=== PATIENT | male | born 1950 | race Caucasian/White ===

== ENCOUNTER → 2021-06-05 13:36 | Outpatient (BNVA) | payer MEDICARE, OTHER, SELFPAY | PROVIDERS: Family Provider Family Medicine; Visit Provider Podiatrist Foot & Ankle Surgery | DX: M79.672 Pain in left foot (principal); M10.9 Gout, unspecified | CPT/HCPCS: 73630 ==

== ENCOUNTER → 2021-06-29 09:08 | Outpatient (BNVA) | payer MEDICARE, OTHER, SELFPAY | PROVIDERS: Family Provider Family Medicine; Visit Provider Podiatrist Foot & Ankle Surgery | DX: B35.3 Tinea pedis (principal); S92.505D Nondisplaced unspecified fracture of left lesser toe(s), subsequent encounter for fracture with routine healing; X58.XXXD Exposure to other specified factors, subsequent encounter | CPT/HCPCS: 73630 ==

== ENCOUNTER → 2023-07-14 09:24 | Outpatient (BNVA) | payer MEDICARE, OTHER, SELFPAY | PROVIDERS: Family Provider Family Medicine; PCP Family Medicine; Visit Provider Clinical Nurse Specialist Adult Health | DX: J06.9 Acute upper respiratory infection, unspecified (principal) | CPT/HCPCS: 87400; 87426 ==

== ENCOUNTER 2023-12-26 19:21 | Emergency (ER) | payer MEDICARE, OTHER, SELFPAY ==
[2023-12-26 19:24] VITALS: BP 213/113; PULSE 90; RESP 16; TEMP 36.8; O2SAT 96
[2023-12-26] MEDS: labetalol 5 mg/mL SDV 20mL 10 MG IVP ×2 (20:02→20:41)
[2023-12-26 20:04] LABS: Basophils # 0.1 10^3/uL (0.0-0.1); Basophils % 0.7 %; Eosinophils # 0.2 10^3/uL (0.0-0.8); Eosinophils % 1.7 %; Hematocrit 48.7 % (37-53); Lymphocytes # 3.6 10^3/uL (0.8-4.8); Lymphocytes % 39.1 %; Mean Corpuscular HGB Conc 34.5 g/dL (30-55); Mean Corpuscular Hemoglobin 32.6 pg (27-33); Mean Corpuscular Volume 94.4 fl (82-101); Mean Platelet Volume 11.5 fL (7.4-10.4); Monocytes # 0.8 10^3/uL (0.2-0.9); Monocytes % 8.9 %; Neutrophils # 4.55 10^3/uL (1.8-7.7); Neutrophils % 49.4 %; Nucleated Red Blood Cells % 0 %; Platelet Count 160 10^3/cmm (157-399); Red Blood Count 5.16 10^6/uL (3.85-5.65); Red Cell Distribution Width 13.7 % (12.1-15.1); White Blood Count 9.21 10^3/uL (3.29-11.43)
[2023-12-26 20:10] VITALS: BP 193/123; PULSE 95; RESP 18; O2SAT 94
[2023-12-26 20:17] LABS: Anion Gap 15.7 (5-19); Blood Urea Nitrogen 14 mg/dL (8-23); Carbon Dioxide 26 mmol/L (22-29); Chloride 105 mmol/L (98-107); Creatinine Clr Calc Pharmacy 107.6199; Glucose 185 mg/dL (65-115); Potassium 3.7 mmol/L (3.5-5.1); Sodium 143 mmol/L (136-145)
[2023-12-26 20:18] LABS: Calcium 9.1 mg/dL (8.5-10.5); Osmolality Calculated 301 mOsm/kg (285-295)
[2023-12-26 20:30] VITALS: BP 177/124; PULSE 89; RESP 18; O2SAT 95
--- NOTE | 2023-12-26 20:36 | ED_ITS ---
HPI - General Adult 2 General: Chief complaint: General Medical Stated complaint: BP High Time Seen by Provider: 12/26/23 19:33 Source: patient and family Mode of arrival: ambulatory Limitations: no limitations History of Present Illness: Patient had a doctor appointment to follow-up on a foot wound for which there continues to doxycycline. He was told to take his hypertension meds and recheck his blood pressure later today. He did not recheck the blood pressure till 4:30 PM he reportedly did take his losartan metoprolol. Comes in tonight with hypertensive urgency. No signs of vision loss, chest pain gait or maladies, headache. Just elevated blood pressure. Review of Systems 2 General: Reports: 10 or more systems reviewed and unremarkable except in HPI and below PFSH ED 2 PFSH: Medical History Gout Essential hypertension Physical Exam 2 Const: COMMON NORMALS: no acute distress, average body habitus, patient oriented x3, healthy appearing, alert and well nourished GENERAL APPEARANCE: well kempt and well developed HENMT: COMMON NORMALS: normocephalic, atraumatic, external ears normal and moist oral mucous membranes HEAD & SCALP: normocephalic and atraumatic E XTERNAL EAR: Yes external ears normal Eye: COMMON NORMALS: Equal, round and reactive pupils present, EOMs intact bilaterally and conjunctivae normal CONJUNCTIVA: Yes conjunctivae normal P UPIL: Yes Equal, round and reactive pupils present Neck/C-Spine: COMMON NORMALS: full ROM, no lymphadenopathy and supple Chest: CHEST: Yes Symmetrical chest wall rise and No Surgical scars present (Chest) Resp: COMMON NORMALS: normal respiratory effort, No retractions, No use of accessory muscles and clear to auscultation bilaterally AUSCULTATION: clear to auscultation bilaterally Cardio: COMMON NORMALS: regular rate, regular rhythm, S1 normal heart sound present, S2 normal heart sound present, No gallops present (Cardio), No clicks present (Cardio), No murmurs present (Cardio) and No rub (Cardio) RATE: r egular rate RHYTHM: regular rhythm HEART SOUNDS: S1 normal heart sound present, S2 normal heart sound present and no murmurs PERIPHERAL PULSES: o ther (Radial pulses 2+ and symmetric) GI: COMMON NORMALS: Soft to palpation, non-tender and no masses INSPECTION: No abdominal distension PALPATION: Yes Soft to palpation, No Guarding due to palpation present (GI) and No Rebound tenderness present : COMMON NORMALS: Yes no CVA tenderness BLADDER/KIDNEY EXAM: Yes no CVA tenderness Back/Pelvis: COMMON NORMALS: no CVA tenderness Extremity: COMMON NORMALS: normal to inspection, full ROM, capillary refill normal and no clubbing, cyanosis or edema Neuro: COMMON NORMALS: patient oriented x3 SENSORIUM/ORIENTATION: Yes alert Psych: APPEARANCE: Yes well kempt Skin: COMMON NORMALS: no rashes or lesions noted, no wounds, turgor normal and no jaundice GENERAL SKIN EXAM: no rashes or lesions noted and turgor normal Course 2 Reevaluation(s): Reevaluation #1: Patient still asymptomatic, blood pressure mildly improved will give another dose of labetalol and add Nitropaste. Time: 20:39 Reevaluation #2: Blood pressure now much improved, results discussed with patient and family member. Will discharge home. Time: 21:23 Vital Signs: Vital signs: Vital Signs Temperature 98.2 F 12/26/23 19:24 Pulse Rate 85 12/26/23 21:12 Respiratory Rate 18 12/26/23 21:12 Blood Pressure 164/103 12/26/23 21:12 Pulse Oximetry 96 12/26/23 21:12 Oxygen Delivery Me thod Room Air 12/26/23 19:24 MDM - General Adult Medical Decision Making Patient only on losartan metoprolol per the meds he brought with him. Reports he took him today that sound like he may take him intermittently based on the clinic advising him to take him this morning. Labs reviewed and no acute kidney injury or chronic kidney injury. H&H stable. Have given 1 dose of labetalol 10. Will repeat labetalol and add a nitro paste. Much improvement with blood pressure, reviewed results with patient. Will give hydralazine tablet and discharged home. Patient to recheck blood pressure 2 hours after morning meds tomorrow and if still elevated to see primary care. Medical Records I reviewed the patient's medical records. Lab Data I reviewed the patient's lab results. 12/26/23 19:49 12/26/23 19:49 Laboratory Results WBC 9.21 10^3/uL (3.29-11.43) 12/26/23 19:49 RBC 5.16 10^6/uL (3.85-5.65) 12/26/23 19:49 Hgb 16.80 g/dL (11.27-16.99) 12/26/23 19:49 Hct 48.7 % (37-53) 12/26/23 19:49 MCV 94.4 fl (82-101) 12/26/23 19:49 MCH 32.6 pg (27-33) 12/26/23 19:49 MCHC 34.5 g/dL (30-55) 12/26/23 19:49 RDW 13.7 % (12.1-15.1) 12/26/23 19:49 Plt Count 160 10^3/cmm (157-399) 12/26/23 19:49 MPV 11.5 fL (7.4-10.4) H 12/26/23 19:49 Neut % (Auto) 49.4 % 12/26/23 19:49 Lymph % (Auto) 39.1 % 12/26/23 19:49 [place] % (Auto) 8.9 % 12/26/23 19:49 Eos % (Auto) 1.7 % 12/26/23 19:49 Baso % (Auto) 0.7 % 12/26/23 19:49 Neut # (Auto) 4.55 10^3/uL (1.8-7.7) 12/26/23 19:49 Lymph # (Auto) 3.6 10^3/uL (0.8-4.8) 12/26/23 19:49 [place] # (Auto) 0.8 10^3/uL (0.2-0.9) 12/26/23 19:49 Eos # (Auto) 0.2 10^3/uL (0.0-0.8) 12/26/23 19:49 Baso # (Auto) 0.1 10^3/uL (0.0-0.1) 12/26/23 19:49 Nucleated RBC % (auto) 0 % 12/26/23 19:49 Nucleated RBCs # 0.0 /100WBC 12/26/23 19:49 Sodium 143 mmol/L (136-145) 12/26/23 19:49 Potassium 3.7 mmol/L (3.5-5.1) 12/26/23 19:49 Chloride 105 mmol/L (98-107) 12/26/23 19:49 Carbon Dioxide 26 mmol/L (22-29) 12/26/23 19:49 Anion Gap 15.7 (5-19) 12/26/23 19:49 BUN 14 mg/dL (8-23) 12/26/23 19:49 Creatinine 0.8 mg/dL (0.7-1.2) 12/26/23 19:49 GFR Calculation Not Reportable 12/26/23 19:49 Glucose 185 mg/dL (65-115) H 12/26/23 19:49 Calculated Osmolality 301 mOsm/kg (285-295) H 12/26/23 19:49 Calcium 9.1 mg/dL (8.5-10.5) 12/26/23 19:49 No radiology studies performed this visit Discharge Plan Discharge Patient Disposition: Home Clinical Impression: Hypertensive urgency Condition: Stable Prescriptions: No Action hydrochlorothiazide 25 mg tablet 25 mg PO DAILY ketoconazole 2 % cream 1 applic topical BID 30 Days Qty: 60 2RF ketoconazole 2 % cream 1 applic topical BID Qty: 60 5RF doxycycline monohydrate 100 mg capsule 100 mg PO BID Qty: 10 0RF benzonatate 100 mg capsule 100 mg PO TID PRN (Reason: cough) Qty: 45 0RF metoprolol succinate 25 mg tablet extended release 24 hr See Rx Instructions .ROUTE .COMPLEX Qty: 180 3RF Dose Instruction: TAKE 1 TABLET BY MOUTH TWICE DAILY Rx Instructions: TAKE 1 TABLET BY MOUTH TWICE DAILY losartan 25 mg tablet See Rx Instructions .ROUTE .COMPLEX Qty: 90 3RF Dose Instruction: TAKE 1 TABLET BY MOUTH DAILY Rx Instructions: TAKE 1 TABLET BY MOUTH DAILY allopurinol 300 mg tablet See Rx Instructions .ROUTE .COMPLEX Qty: 90 3RF Dose Instruction: TAKE 1 TABLET BY MOUTH EVERY DAY FOR GOUT Rx Instructions: TAKE 1 TABLET BY MOUTH EVERY DAY FOR GOUT Discharge Orders: Discharge ED (Routine); Ordered 12/26/23 Ordered By: Isaiah Nelson Referrals: Jg Webster MD [Primary Care Provider] - Patient Instructions: Hypertension in the Older Adult (ED) Coding Level of Care Code ED Head Of Marketing Analytics for Sadig Mayte
[2023-12-26 20:41] VITALS: BP 189/117; PULSE 83; RESP 18; O2SAT 94
[2023-12-26 20:42] VITALS: BP 189/117; PULSE 90
[2023-12-26] MEDS: nitroglycerin 1 gm/inch oint Pkt 0.5 INCH TOPICAL (20:42)
[2023-12-26 21:12] VITALS: BP 164/103; PULSE 85; RESP 18; O2SAT 96
--- NOTE | 2023-12-26 21:24 | ED_ITS ---
HPI - General Adult 2 General: Chief complaint: General Medical Stated complaint: BP High Time Seen by Provider: 12/26/23 19:33 Source: patient and family Mode of arrival: ambulatory Limitations: no limitations History of Present Illness: note opened in error [facility] ED 2 PFSH: Medical History Gout Essential hypertension Course 2 Vital Signs: Vital signs: Vital Signs Temperature 98.2 F 12/26/23 19:24 Pulse Rate 85 12/26/23 21:12 Respiratory Rate 18 12/26/23 21:12 Blood Pressure 164/103 12/26/23 21:12 Pulse Oximetry 96 12/26/23 21:12 Oxygen Delivery Me thod Room Air 12/26/23 19:24 MDM - General Adult Medical Decision Making 2nd note opened in error Lab Data 12/26/23 19:49 12/26/23 19:49 Laboratory Results WBC 9.21 10^3/uL (3.29-11.43) 12/26/23 19:49 RBC 5.16 10^6/uL (3.85-5.65) 12/26/23 19:49 Hgb 16.80 g/dL (11.27-16.99) 12/26/23 19:49 Hct 48.7 % (37-53) 12/26/23 19:49 MCV 94.4 fl (82-101) 12/26/23 19:49 MCH 32.6 pg (27-33) 12/26/23 19:49 MCHC 34.5 g/dL (30-55) 12/26/23 19:49 RDW 13.7 % (12.1-15.1) 12/26/23 19:49 Plt Count 160 10^3/cmm (157-399) 12/26/23 19:49 MPV 11.5 fL (7.4-10.4) H 12/26/23 19:49 Neut % (Auto) 49.4 % 12/26/23 19:49 Lymph % (Auto) 39.1 % 12/26/23 19:49 [place] % (Auto) 8.9 % 12/26/23 19:49 Eos % (Auto) 1.7 % 12/26/23 19:49 Baso % (Auto) 0.7 % 12/26/23 19:49 Neut # (Auto) 4.55 10^3/uL (1.8-7.7) 12/26/23 19:49 Lymph # (Auto) 3.6 10^3/uL (0.8-4.8) 12/26/23 19:49 [place] # (Auto) 0.8 10^3/uL (0.2-0.9) 12/26/23 19:49 Eos # (Auto) 0.2 10^3/uL (0.0-0.8) 12/26/23 19:49 Baso # (Auto) 0.1 10^3/uL (0.0-0.1) 12/26/23 19:49 Nucleated RBC % (auto) 0 % 12/26/23 19:49 Nucleated RBCs # 0.0 /100WBC 12/26/23 19:49 Sodium 143 mmol/L (136-145) 12/26/23 19:49 Potassium 3.7 mmol/L (3.5-5.1) 12/26/23 19:49 Chloride 105 mmol/L (98-107) 12/26/23 19:49 Carbon Dioxide 26 mmol/L (22-29) 12/26/23 19:49 Anion Gap 15.7 (5-19) 12/26/23 19:49 BUN 14 mg/dL (8-23) 12/26/23 19:49 Creatinine 0.8 mg/dL (0.7-1.2) 12/26/23 19:49 GFR Calculation Not Reportable 12/26/23 19:49 Glucose 185 mg/dL (65-115) H 12/26/23 19:49 Calculated Osmolality 301 mOsm/kg (285-295) H 12/26/23 19:49 Calcium 9.1 mg/dL (8.5-10.5) 12/26/23 19:49 No radiology studies performed this visit Discharge Plan Discharge Patient Disposition: Home Clinical Impression: Hypertensive urgency Condition: Stable Prescriptions: No Action hydrochlorothiazide 25 mg tablet 25 mg PO DAILY ketoconazole 2 % cream 1 applic topical BID 30 Days Qty: 60 2RF ketoconazole 2 % cream 1 applic topical BID Qty: 60 5RF doxycycline monohydrate 100 mg capsule 100 mg PO BID Qty: 10 0RF benzonatate 100 mg capsule 100 mg PO TID PRN (Reason: cough) Qty: 45 0RF metoprolol succinate 25 mg tablet extended release 24 hr See Rx Instructions .ROUTE .COMPLEX Qty: 180 3RF Dose Instruction: TAKE 1 TABLET BY MOUTH TWICE DAILY Rx Instructions: TAKE 1 TABLET BY MOUTH TWICE DAILY losartan 25 mg tablet See Rx Instructions .ROUTE .COMPLEX Qty: 90 3RF Dose Instruction: TAKE 1 TABLET BY MOUTH DAILY Rx Instructions: TAKE 1 TABLET BY MOUTH DAILY allopurinol 300 mg tablet See Rx Instructions .ROUTE .COMPLEX Qty: 90 3RF Dose Instruction: TAKE 1 TABLET BY MOUTH EVERY DAY FOR GOUT Rx Instructions: TAKE 1 TABLET BY MOUTH EVERY DAY FOR GOUT Discharge Orders: Discharge ED (Routine); Ordered 12/26/23 Ordered By: Isaiah Nelson Referrals: Jg Webster MD [Primary Care Provider] - Discharge Diet: Low Salt Discharge Activity: Resume usual activity Patient Instructions: Hypertension in the Older Adult (ED) Coding Level of Care Code ED Medicare Contact Specialist for Cruzito Hu
[2023-12-26] MEDS: hyDRALAzine 25 mg Tablet PO (21:26)
== END 2023-12-26 21:34 | disposition home or self-care (01) ==
PROVIDERS: Emergency Provider Emergency Medicine; PCP Family Medicine
DX: I16.0 Hypertensive urgency (principal); I10 Essential (primary) hypertension
CPT/HCPCS: 80048; 85025; 96374; 96376; 99284; J3490

== ENCOUNTER → 2024-06-27 08:46 | Outpatient (BNVA) | payer MEDICARE, OTHER, SELFPAY | PROVIDERS: PCP Family Medicine; Visit Provider Family Medicine | DX: I10 Essential (primary) hypertension (principal); I48.91 Unspecified atrial fibrillation; M10.9 Gout, unspecified | CPT/HCPCS: 80053; 80061; 84550; 85025 ==

== ENCOUNTER → 2024-11-30 11:17 | Outpatient (BNVA) | payer MEDICARE, OTHER, SELFPAY | PROVIDERS: PCP Family Medicine; Visit Provider Family Medicine | DX: E03.9 Hypothyroidism, unspecified (principal); I10 Essential (primary) hypertension; M10.9 Gout, unspecified; I48.91 Unspecified atrial fibrillation; R53.83 Other fatigue | CPT/HCPCS: 80053; 80061; 82306; 84443; 85025 ==

== ENCOUNTER → 2024-12-27 15:28 | Outpatient (BNVA) | payer MEDICARE, OTHER, SELFPAY | PROVIDERS: PCP Family Medicine; Visit Provider Family Medicine | DX: T14.8XXA Other injury of unspecified body region, initial encounter (principal); X58.XXXA Exposure to other specified factors, initial encounter | CPT/HCPCS: 87070 ==

== ENCOUNTER → 2024-12-28 10:52 | Outpatient (BNVA) | payer MEDICARE, OTHER, SELFPAY | PROVIDERS: PCP Family Medicine; Visit Provider Emergency Medicine | DX: M19.071 Primary osteoarthritis, right ankle and foot (principal) | CPT/HCPCS: 73630 ==

== ENCOUNTER 2024-12-30 11:55 | Inpatient (IN) | payer MEDICARE, OTHER, SELFPAY ==
[2024-12-30] VITALS (8 sets, daily range): BP systolic 108–146; BP diastolic 67–98; PULSE 70–88; RESP 16–20; TEMP 36.3–36.5; O2SAT 90–100; BMI 28.6
[2024-12-30 13:08] LABS: Basophils # 0.1 10^3/uL (0.0-0.1); Eosinophils # 0.1 10^3/uL (0.0-0.8); Eosinophils % 1.4 %; Hematocrit 51.5 % (37-53); Lymphocytes # 2.8 10^3/uL (0.8-4.8); Lymphocytes % 35.9 %; Mean Corpuscular HGB Conc 32.8 g/dL (30-55); Mean Corpuscular Hemoglobin 32.5 pg (27-33); Mean Platelet Volume 11.2 fL (7.4-10.4); Monocytes # 0.9 10^3/uL (0.2-0.9); Monocytes % 11.2 %; Neutrophils # 3.92 10^3/uL (1.8-7.7); Neutrophils % 50.4 %; Nucleated Red Blood Cells % 0 %; Platelet Count 221 10^3/cmm (157-399); Red Cell Distribution Width 13.4 % (12.1-15.1); White Blood Count 7.79 10^3/uL (3.29-11.43)
[2024-12-30 13:15] LABS: Erythrocyte Sedimentation Rate 6 mm/hr (0-10)
[2024-12-30 13:27] LABS: C Reactive Protein 16.7 mg/L (0.0-4.9)
--- NOTE | 2024-12-30 14:42 | ED_ITS ---
HPI - Wound/Laceration 2 General: Chief Complaint: Wound/Laceration Stated Complaint: stepped on nail - rt foot injury Time Seen by Provider: 12/30/24 13:45 Source: patient Mode of arrival: ambulatory Limitations: no limitations History of Present Illness: 74-year-old male who states that he had stepped on a nail on Tuesday he states he had seen urgent care he is currently on clindamycin and Cipro states has had increased redness to his right foot. Had some slight pain denies any fevers. Denies any worse improving factors Associated symptoms: Denies chills, fever(s), nausea or vomiting Related Data Previous Rx's ?Medication ?Instructions ?Recorded metoprolol succinate 25 mg See Rx Instructions .Route 01/24/24 tablet,extended release 24 hr .COMPLEX #180 tabs allopurinol 300 mg tablet See Rx Instructions .Route 0 11/30/24 .COMPLEX #90 tabs hydrochlorothiazide 25 mg tablet See Rx Instructions . Route 12/14/24 .COMPLEX #90 tabs losartan 50 mg tablet See Rx Instructions .Route 0 12/14/24 .COMPLEX #90 tabs Lactobacillus acidophilus 100 mg PO TID #30 caps 12/27 (Acidophilus capsule) clindamycin HCl 300 mg capsule 300 mg PO QID #40 caps 12/27/24 apixaban 5 mg tablet (Eliquis) 5 mg PO BID anticoagula tion due to 12/28/24 afib #60 tabs ciprofloxacin HCl 500 mg tablet 500 mg PO BID 10 days #20 tabs 12/28/24 Allergies Allergy/AdvReac Type Severity Reaction Status Date / Time No Known Allergies Allergy Verified 12/28/24 10:26 Review of Systems 2 Const: Denies: fever(s), chills, body aches or change in appetite ENMT: Denies: throat pain or dental pain Card: Denies: chest pain Resp: Denies: dyspnea GI: Denies: abdominal pain, nausea, vomiting or diarrhea Musc: Reports: extremity pain; Denies: neck pain or back pain Skin/Breast: Reports: erythema; Denies: rash Neuro: Denies: headache(s) PFSH ED 2 PFSH: Medical History Atrial fibrillation Gout Essential hypertension Family History Father , Heart attack at 45 No problems noted. Grandmother , heart attack at 73 No problems noted. Social History Smoking and tobacco/nicotine status: heavy tobacco/nicotine user Physical Exam 2 Const: COMMON NORMALS: no acute distress, patient oriented x3 and healthy appearing HENMT: COMMON NORMALS: normocephalic and atraumatic HEAD & SCALP: n ormocephalic and atraumatic Eye: COMMON NORMALS: conjunctivae normal CONJUNCTIVA: Yes conjunctivae normal Neck/C-Spine: COMMON NORMALS: full ROM and supple Chest: COMMONS NORMALS: normal inspection of the chest Resp: COMMON NORMALS: normal respiratory effort Cardio: COMMON NORMALS: regular rate RATE: regular rate Extremity: NARRATIVE EXTREMITY EXAM: Puncture wound noted to the bottom of the foot does have erythema noted to the foot to the ankle Neuro: COMMON NORMALS: patient oriented x3, moves all extremities and no focal motor deficits Psych: COMMON NORMALS: mental status grossly normal, Normal thought process present and cooperative THOUGHT PROCESS: Normal thought process present Skin: COMMON NORMALS: no rashes or lesions noted and no wounds GENERAL SKIN EXAM: no rashes or lesions noted Course 2 Vital Signs: Vital signs: Vital Signs Temperature 97.7 F 12/30/24 12:00 Pulse Rate 88 12/30/24 12:00 Respiratory Rate 17 12/30/24 12:00 Blood Pressure 130/82 12/30/24 12:00 Pulse Oximetry 98 12/30/24 12:00 Oxygen Delivery Me thod Room Air 12/30/24 12:00 MDM - Wound/Laceration Medical Decision Making Patient presents for cellulitis of the right foot after a puncture wound I spoke to tool hardener Dr. Liu who saw patient in the ER and recommended admission he is consulted spoke to hospitalist who is admitting. Medical Records I reviewed the patient's medical records. Lab Data I reviewed the patient's lab results. 12/30/24 13:03 Laboratory Results WBC 7.79 10^3/uL (3.29-11.43) 12/30/24 13:03 RBC 5.20 10^6/uL (3.85-5.65) 12/30/24 13:03 Hgb 16.90 g/dL (11.27-16.99) 12/30/24 13:03 Hct 51.5 % (37-53) 12/30/24 13:03 MCV 99.0 fl (82-101) 12/30/24 13:03 MCH 32.5 pg (27-33) 12/30/24 13:03 MCHC 32.8 g/dL (30-55) 12/30/24 13:03 RDW 13.4 % (12.1-15.1) 12/30/24 13:03 Plt Count 221 10^3/cmm (157-399) 12/30/24 13:03 MPV 11.2 fL (7.4-10.4) H 12/30/24 13:03 Neut % (Auto) 50.4 % 12/30/24 13:03 Lymph % (Auto) 35.9 % 12/30/24 13:03 [place] % (Auto) 11.2 % 12/30/24 13:03 Eos % (Auto) 1.4 % 12/30/24 13:03 Baso % (Auto) 1.0 % 12/30/24 13:03 Neut # (Auto) 3.92 10^3/uL (1.8-7.7) 12/30/24 13:03 Lymph # (Auto) 2.8 10^3/uL (0.8-4.8) 12/30/24 13:03 [place] # (Auto) 0.9 10^3/uL (0.2-0.9) 12/30/24 13:03 Eos # (Auto) 0.1 10^3/uL (0.0-0.8) 12/30/24 13:03 Baso # (Auto) 0.1 10^3/uL (0.0-0.1) 12/30/24 13:03 Nucleated RBC % (auto) 0 % 12/30/24 13:03 Nucleated RBCs # 0.0 /100WBC 12/30/24 13:03 ESR 6 mm/hr (0-10) 12/30/24 13:03 C-Reactive Protein 16.7 mg/L (0.0-4.9) H 12/30/24 13:03 No radiology studies performed this visit Discharge Plan Discharge Patient Disposition: Admitted As Inpatient Admit Provider: Samuel Lombardo Clinical Impression: Cellulitis of foot, right Condition: Stable Coding Level of Care Code ED Gun Bar[employer] Finisher for Cruzito Hu
--- NOTE | 2024-12-30 14:50 | PM.CONSULT ---
Providers/Reason For Consult Consulting Physician/Specialty*: Ge Liu D.P.M./podiatry Reason for Consult*: Cellulitis right foot Primary Care Provider: Jg Webster MD History of Present Illness History of Present Illness The patient is a 74-year-old male presenting with increased foot redness and failed outpatient antibiotics management. On December 26, 2024, the patient experienced a puncture wound to the right foot. Initially treated with clindamycin, which was later augmented with ciprofloxacin, he has failed to respond to these antibiotics. Despite treatment, redness has intensified, extending towards the ankle. The site under the second metatarsal head is not purulent and does not probe to bone. His medical history reveals prior concerns related to a tick bite resulting in cellulitis, treated initially with doxycycline, which has not been consistently taken. Additionally, he has atrial fibrillation, slated for cardiology evaluation. Had an outpatient ultrasound scheduled at [place] this coming week. A previous neck fracture has led to a surgical plate placement. Diagnostic imaging, specifically an MRI, is being considered to rule out deep infection or abscess formation, with a plan for potential surgical drainage if necessary. Review of Systems General: Reports: 10 or more systems reviewed and unremarkable except in HPI and below Narrative: - Integumentary: Reports increased redness over the right foot. - Musculoskeletal: Denies pain in the foot despite swelling. - Cardiovascular: Denies chest pain but has a history of untreated atrial fibrillation. - General: Reports a need for tetanus vaccination following the puncture wound. Const: Denies: fever(s) or chills Eyes: Denies: change in vision Card: Denies: chest pain or palpitations Resp: Denies: dyspnea or productive cough GI: Denies: abdominal pain, nausea or vomiting : Denies: flank pain Musc: Reports: extremity swelling, joint stiffness and deformity Skin/Breast: Reports: erythema, sores, changes in skin color, dry skin, nail changes and change in hair Neuro: Reports: numbness in extremities, sensory changes and difficulty walking Psych: Denies: suicidal ideation Endo: Denies: change in body appearance Faustino/Lymph: Denies: tender lymph nodes Medications/Allergies Home Medications ?Medication ?Instructions ?Recorded ?Confirmed ?Last Taken ?Type metoprolol succinate 25 mg See Rx Instructions .Route 01/24/24 12/30/24 12/30/24 Rx tablet,extended release 24 hr .COMPLEX #180 tabs allopurinol 300 mg tablet See Rx Instructions .Route 11/30/24 12/30/24 12/30/24 Rx .COMPLEX #90 tabs hydrochlorothiazide 25 mg tablet See Rx Instructions .Route 12/14/24 12/30/24 12/30/24 Rx .COMPLEX #90 tabs losartan 50 mg tablet See Rx Instructions .Route 12/14/24 12/28/24 12/30/24 Rx .COMPLEX #90 tabs Lactobacillus acidophilus 100 mg PO TID #30 caps 12/27/24 12/30/24 12/30/24 Rx (Acidophilus capsule) clindamycin HCl 300 mg capsule 300 mg PO QID #40 caps 12/27/24 12/30/24 12/30/24 Rx apixaban 5 mg tablet (Eliquis) 5 mg PO BID anticoagulation due to 12/28/24 12/30/24 12/30/24 Rx afib #60 tabs ciprofloxacin HCl 500 mg tablet 500 mg PO BID 10 days #20 tabs 12/28/24 12/30/24 Unknown Rx Allergies Allergy/AdvReac Type Severity Reaction Status Date / Time No Known Allergies Allergy Verified 12/28/24 10:26 PFSH Acute PFSH: Medical History Atrial fibrillation Gout Essential hypertension Family History Father , Heart attack at 45 No problems noted. Grandmother , heart attack at 73 No problems noted. Social History Smoking and tobacco/nicotine status: heavy tobacco/nicotine user Vitals/I&O/Wt Last Vital Signs Temp 97.7 F 12/30/24 12:00 Pulse 88 12/30/24 12:00 Resp 17 12/30/24 12:00 BP 130/82 12/30/24 12:00 Pulse Ox 98 12/30/24 12:00 O2 Del Method Room Air 12/30/24 12:00 Weight last 48 hrs Weight 229 lb Physical Exam Narrative: GENERAL: Patient is alert and oriented ?3 and in no acute distress. The following is a focused bilateral lower extremity exam. Accompanied by his daughter. VASCULAR: Dorsalis pedis palpable. Posterior tibial arteries palpable. Capillary refill time less than 3 seconds to the distal hallux bilaterally. Calf is supple and nontender proximally and distally. Pedal hair growth present. Edema to the right foot. NEUROLOGICAL: Protective sensation intact 9/10 sites, tested with [place] Melany monofilament to bilateral feet. DERMATOLOGICAL: Puncture wound subsecond metatarsal head right foot has no drainage, puncture wound is not open. Erythema about the forefoot streaking laterally to the right lateral ankle. MUSCULOSKELETAL: No crepitus with palpation of soft tissue at the right foot. Exquisite tenderness palpation right forefoot. Data 12/30/24 13:03 A&P Assessment and plan (1) Cellulitis of foot, right: (2) Cellulitis of right ankle: (3) Puncture wound of right foot: Plan 74-year-old male presenting with increased redness and failed outpatient antibiotics management for a right foot puncture wound. The clinical picture suggests cellulitis with extension towards the ankle, necessitating advanced imaging to exclude an abscess or foreign body. Given previous incomplete antibiotic coverage, inpatient management with IV antibiotics is advised, alongside MRI evaluation to guide further intervention, including possible surgical drainage. X-ray taken in emergency department negative for foreign body, negative for soft tissue emphysema, negative for acute osseous abnormality. 1. Cellulitis Of Right Foot Due to inadequate response to oral antibiotics, admit for intravenous antibiotic treatment. MRI to rule out abscess or foreign body is indicated, with surgical drainage if needed based on imaging results. 2. Puncture Wound Of The Right Foot Assess for complications like retained foreign body or abscess. Plan for surgical intervention as necessary based on imaging results. Administer tetanus booster. - Recommend admission to the hospital for IV antibiotics. - MRI right foot will be conducted to check if there's a need for any surgery. Rule out abscess, osteomyelitis and foreign body. - Verify tetanus vaccination Podiatry will follow. PDMP PDMP Reviewed: Not Reviewed Coding Level of Care Code Acute Code for [facility] Fwd Diagnoses Cellulitis of foot, right L03.115 Cellulitis of right ankle L03.115 Puncture wound of right foot, initial encounter S91.331A Encounter type: initial encounter
[2024-12-30] MEDS: piperacillin-tazobactam 3.375 GM in sodium chloride 0.9% (plus) 50 ML IV ×2 (15:50→22:06)
[2024-12-30] MEDS: VANCOMYCIN ADD-Vantage 1,000 MG in 0.9% NaCl ADD-Vantage 250 ML 250 MG IV ×2 (15:55→23:00)
--- NOTE | 2024-12-30 16:08 | MRR_ITS ---
PROCEDURE INFORMATION: Exam: MR Right Lower Extremity Other Than Joint Without and With Contrast; Foot Exam date and time: 12/30/2024 5:53 PM Age: 74 years old Clinical indication: Swelling, leg or foot; PT stepped on nail 3 days ago, for swelling and pain puncture at base of toes; Additional info: Evaluate for abscess, osteomyelitis and foreign body TECHNIQUE: Imaging protocol: Magnetic resonance imaging of the right lower extremity without and with contrast. Exam focused on the foot. Contrast material: MULTIHANCE; Contrast volume: 20 ml; Contrast route: INTRAVENOUS (IV); COMPARISON: CR XR foot RT min 3V* [id number] 12/28/2024 10:54 AM FINDINGS: Diffuse soft tissue edema, particularly of the dorsal lateral forefoot/midfoot, which may reflect cellulitis. No discrete fluid collection to suggest abscess. No evidence of acute osteomyelitis. 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 Intermetatarsal alignment and Lisfranc ligament are intact. No evidence of acute fracture. No convincing evidence of foreign body. MR/MR foot RT wo/w con [id number] IMPRESSION: 1.Soft tissue edema without discrete fluid collection or underlying acute osteomyelitis.
[2024-12-30] MEDS: gadobenate dimeglumine 20 mL vial IV (18:19)
--- NOTE | 2024-12-30 18:58 | P.HP_ITS ---
Providers/Chief Complaint 2 Admitting Physician: Samuel Lombardo DO Primary Care Provider: Jg Webster MD Chief Complaint: stepped on nail - rt foot injury History of Present Illness Jasper Menjivar is a 74 year old male with past medical history of hypertension and atrial fibrillation on chronic anticoagulation presents after stepping on a nail . He was seen by physician and started on clindamycin. however, he started to have further extension of redness and intensification and was seen in an urgent care. That physician changed him to Cipro. And over the next few days the swelling and pain continued to worsen. He denies any fevers or chills no nausea or vomiting constipation or diarrhea In the emergency room his white count is normal and he is afebrile however he has an obvious cellulitis of the right foot. He did get a tetanus update on initial presentation. He is admitted to rule out deep infection abscess or osteomyelitis. Podiatry plans on potential surgical drainage tomorrow Review of Systems 2 Const: Denies: fever(s) or chills Eyes: Denies: change in vision ENMT: Denies: throat pain or nasal congestion Card: Denies: chest pain or palpitations Resp: Denies: dyspnea or productive cough GI: Denies: abdominal pain, nausea, vomiting or change in stool character : Denies: difficulty urinating or dysuria Musc: Reports: extremity pain; Denies: back pain Skin/Breast: Denies: rash or lesions Neuro: Denies: headache(s) or dizziness Psych: Denies: anxiety or depression Faustino/Lymph: Denies: easy bruising or easy bleeding Medications/Allergies Home Medications ?Medication ?Instructions ?Recorded ?Confirmed ?Last Taken ?Type metoprolol succinate 25 mg See Rx Instructions .Route 01/24/24 12/30/24 12/30/24 Rx tablet,extended release 24 hr .COMPLEX #180 tabs allopurinol 300 mg tablet See Rx Instructions .Route 0 11/30/24 12/30/24 12/30/24 Rx .COMPLEX #90 tabs hydrochlorothiazide 25 mg tablet See Rx Instructions . Route 12/14/24 12/30/24 12/30/24 Rx .COMPLEX #90 tabs losartan 50 mg tablet See Rx Instructions .Route 0 12/14/24 12/30/24 12/30/24 Rx .COMPLEX #90 tabs Lactobacillus acidophilus 100 mg PO TID #30 caps 12/2712/30/24 12/30/24 Rx (Acidophilus capsule) clindamycin HCl 300 mg capsule 300 mg PO QID #40 caps 12/27/24 12/30/24 12/30/24 Rx apixaban 5 mg tablet (Eliquis) 5 mg PO BID anticoagula tion due to 12/28/24 12/30/24 12/30/24 Rx afib #60 tabs ciprofloxacin HCl 500 mg tablet 500 mg PO BID 10 days #20 tabs 12/28/24 12/30/24 Unknown Rx Allergies Allergy/AdvReac Type Severity Reaction Status Date / Time No Known Allergies Allergy Verified 12/28/24 10:26 PFSH Acute 2 PFSH: Medical History Atrial fibrillation Gout Essential hypertension Family History Father , Heart attack at 45 No problems noted. Grandmother , heart attack at 73 No problems noted. Social History Smoking and tobacco/nicotine status: heavy tobacco/nicotine user Vitals/I&O/Wt Last Vital Signs Temp 97.7 F 12/30/24 12:00 Pulse 82 12/30/24 17:30 Resp 20 H 12/30/24 17:30 BP 129/88 12/30/24 17:30 Pulse Ox 90 12/30/24 17:30 O2 Del Method Room Air 12/30/24 12:00 Weight last 48 hrs Weight 103.873 kg Physical Exam 2 Narrative: Patient is alert extremely hard of hearing. Neuro alert and oriented to person place time and situation exam is nonfocal HEENT head is normocephalic atraumatic pupils equal round reactive to light and accommodation extraocular muscles are intact there is no scleral icterus mucous membranes are moist and pink without lesions or exudates Neck is supple no JVD carotid bruits or lymphadenopathy Heart is regular normal S1-S2 without murmurs clicks gallops or rubs Lungs are clear to auscultation although somewhat diminished no obvious wheezes rales or rhonchi Abdomen soft nontender nondistended positive bowel sounds no hepatosplenomegaly Back no CVA tenderness no significant kyphosis or scoliosis Extremities right foot shows erythema and warmth from right metatarsal to ankle. There is significant edema associated with this area area as well as warmth and erythema. Staff has outlined it with skin marker. Lymph: No inguinal lymph nodes palpable Psych mood and affect appropriate Skin no other lesions or rashes noted Data 12/30/24 13:03 Micro: Microbiology 12/30/24 14:53 Blood Culture - Preliminary Blood SPECIMEN COLLECTED 12/30/24 13:03 Blood Culture - Preliminary Blood SPECIMEN COLLECTED A&P Assessment and plan (1) Cellulitis of foot, right: Patient is placed on Zosyn and vancomycin Podiatry was consulted and asked for an MRI this was ordered. (2) Puncture wound of right foot: Plan Admit to [facility]. IV antibiotics. Pain control N.p.o. after midnight for potential surgical drainage by podiatry PDMP PDMP Reviewed: Not Reviewed Attestations 2 Medical Necessity Statement*: Patient's care is expected to cross 2 midnights since he has failed outpatient therapy for this infection and will require surgical intervention most likely. Coding Level of Care Code Acute Code for [facility] Diagnoses Cellulitis of foot, right L03.115 Puncture wound of right foot, initial encounter S91.331A Encounter type: initial encounter
[2024-12-30] MEDS: dextrose 5%-sod chloride 0.45% 1,000 ML 75 ML IV (20:22)
[2024-12-30] MEDS: heparin 5,000 unit/mL INJ 1 mL 5000 UNIT SUBCUT (20:45)
[2024-12-30] MEDS: docusate sodium 100 mg Capsule PO (20:45)
[2024-12-31 03:43] LABS: Basophils # 0.1 10^3/uL (0.0-0.1); Eosinophils # 0.2 10^3/uL (0.0-0.8); Hematocrit 44.5 % (37-53); Lymphocytes % 35.8 %; Mean Corpuscular HGB Conc 33.3 g/dL (30-55); Mean Corpuscular Hemoglobin 32.7 pg (27-33); Mean Corpuscular Volume 98.2 fl (82-101); Mean Platelet Volume 12.1 fL (7.4-10.4); Monocytes # 0.9 10^3/uL (0.2-0.9); Monocytes % 10.6 %; Neutrophils % 50.2 %; Nucleated Red Blood Cells % 0 %; Platelet Count 195 10^3/cmm (157-399); Red Blood Count 4.53 10^6/uL (3.85-5.65); Red Cell Distribution Width 13.3 % (12.1-15.1); White Blood Count 8.37 10^3/uL (3.29-11.43)
[2024-12-31 03:55] VITALS: BP 131/77; PULSE 81; RESP 18; TEMP 36.5; O2SAT 95
[2024-12-31 04:12] LABS: Blood Urea Nitrogen 12 mg/dL (8-23); Calcium 9.3 mg/dL (8.5-10.5); Carbon Dioxide 24 mmol/L (22-29); Chloride 99 mmol/L (98-107); Creatinine Clr Calc Pharmacy 106.6705; Glucose 112 mg/dL (65-115); Osmolality Calculated 285 mOsm/kg (285-295); Sodium 137 mmol/L (136-145)
[2024-12-31 04:27] LABS: Anion Gap 17.7 (5-19); Potassium 3.7 mmol/L (3.5-5.1)
[2024-12-31] MEDS: piperacillin-tazobactam 3.375 GM in sodium chloride 0.9% (plus) 50 ML IV ×3 (05:25→21:44)
--- NOTE | 2024-12-31 06:49 | P.PN_ITS ---
Subjective 2 Subjective: Patient seen bedside this a.m., denies any acute events overnight. Reviewed MRI findings with patient. Regular diet,. Vitals/I&O/Wt Last Vital Signs Temp 97.7 F 12/31/24 03:55 Pulse 81 12/31/24 03:55 Resp 18 12/31/24 03:55 BP 131/77 12/31/24 03:55 Pulse Ox 95 12/31/24 03:55 O2 Del Method Room Air 12/31/24 03:55 12/30/24 12/30/24 12/31/24 14:59 22:59 06:59 Intake Total 300 / 300 300.00 / 600.00 Balance 300 / 300 300.00 / 600.00 Weight last 48 hrs Weight 226 lb Weight 229 lb 4.8 oz Weight 229 lb Physical Exam 2 Narrative: GENERAL: Patient is alert and oriented ?3 and in no acute distress. The following is a focused bilateral lower extremity exam. Accompanied by his daughter. VASCULAR: Dorsalis pedis palpable. Posterior tibial arteries palpable. Capillary refill time less than 3 seconds to the distal hallux bilaterally. Calf is supple and nontender proximally and distally. Pedal hair growth present. Edema to the right foot. NEUROLOGICAL: Protective sensation intact 9/10 sites, tested with [place] Melany monofilament to bilateral feet. DERMATOLOGICAL: Puncture wound subsecond metatarsal head right foot has no drainage, puncture wound is not open. Erythema about the forefoot streaking laterally to the right lateral ankle. MUSCULOSKELETAL: No crepitus with palpation of soft tissue at the right foot. Exquisite tenderness palpation right forefoot. Data 12/31/24 02:11 12/31/24 02:11 Micro: Microbiology 12/30/24 14:53 Blood Culture - Preliminary Blood SPECIMEN COLLECTED 12/30/24 13:03 Blood Culture - Preliminary Blood SPECIMEN COLLECTED A&P Assessment and plan (1) Cellulitis of foot, right: (2) Cellulitis of right ankle: (3) Puncture wound of right foot: Plan 74-year-old male presenting with increased redness and failed outpatient antibiotics management for a right foot puncture wound. The clinical picture suggests cellulitis with extension towards the ankle, necessitating advanced imaging to exclude an abscess or foreign body. Given previous incomplete antibiotic coverage, inpatient management with IV antibiotics is advised, alongside MRI evaluation to guide further intervention, including possible surgical drainage. X-ray taken in emergency department negative for foreign body, negative for soft tissue emphysema, negative for acute osseous abnormality. - Receiving empiric IV antibiotics for cellulitis right lower extremity secondary to puncture wound. - Reviewed MRI right foot with and without contrast, negative for foreign body, negative for osteomyelitis, negative for abscess. - Verify tetanus vaccination MRI negative for drainable abscess, recommend continuing empiric IV antibiotics and monitoring his response, no plans for surgical intervention today given MRI findings, will continue to follow and assess daily his clinical response to treatment. Podiatry will follow. PDMP PDMP Reviewed: Not Reviewed Attestations 2 Medical Necessity Statement*: Cellulitis right foot failed outpatient antibiotics. Requires continued IV antibiotics and close monitoring, possible surgical intervention. Coding Level of Care Code Acute Code for [facility] Diagnoses Cellulitis of foot, right L03.115 Cellulitis of right ankle L03.115 Puncture wound of right foot, initial encounter S91.331A Encounter type: initial encounter
[2024-12-31 08:00] VITALS: BP 120/85; PULSE 90; RESP 17; TEMP 36.9; O2SAT 94
[2024-12-31] MEDS: heparin 5,000 unit/mL INJ 1 mL 5000 UNIT SUBCUT ×2 (09:42→21:43)
[2024-12-31] MEDS: dextrose 5%-sod chloride 0.45% 1,000 ML 75 ML IV (09:42)
[2024-12-31] MEDS: docusate sodium 100 mg Capsule PO ×2 (09:43→16:46)
--- NOTE | 2024-12-31 10:22 | PC.CHAP ---
Pastoral Care Encounter/Spiritual Assessment Type of Contact [] Declined therapist respiratory visit [] Patient/Family/Request visit [] Outpatient visit [] Follow-up visit [] Physician referral [] Code/Alert [x] Routine visit [] Staff referral [] Actively dying [] Patient sleeping [] Family support [] [] Out of room [] Palliative care [] [] Receiving care in room [] Pre-surgical visit [] Trauma [] Long length of stay [] ICU visit [] Other: Relational/Emotional Strength [] Patient feels connected with others/family/visitors/staff [] Distress [] Loneliness/isolation [] Abandonment Spirituality of Patient [x] Person of Erin [] Attends Evangelical of their Erin [x] Believes in Prayer [] Reads Bible or Restorationist materials [] There are Spiritual issues to be addressed Senior Contracts Manager Interventions [x] Prayer [x] Active listening [] Non-anxious presence [] Spiritual/emotional support [] Crisis/trauma care [] Spiritual counseling [] Bereavement support [] Provided bereavement packet [x] Provided Bible/devotional materials [] Provided toy/stuffed animal, coloring book to patient or family member [] Provided Communion [] Anointing/[place] [] Salvation [x] Completed spiritual assessment [] Other: Impact on Illness or Injury [] Angry [] Fearful [] Anxious [] Often cries [] Exhaustion [] Unable to work [] Unable to attend evangelical [] Unable to walk/stand [] Unable to read [] Unable to drive [] Unable to eat/drink [] Unable to sleep [] Unable to be with family [] Patient intubated [] Other: Summary Time spent with patient 10 min
[2024-12-31 11:09] VITALS: BP 135/79; PULSE 83; RESP 16; TEMP 36.8; O2SAT 93
[2024-12-31 15:30] VITALS: BP 123/80; PULSE 93; RESP 17; TEMP 36.8; O2SAT 94
--- NOTE | 2024-12-31 15:50 | P.PN_ITS ---
Subjective 2 Subjective: 74-year-old male has had tetan us vaccination last year as well as with this puncture when seen with his PCP last week. He was on oral antibiotics from Dr. Webster including clindamycin. He was seen at the walk-in clinic. and started on ciprofloxacin white count not really elevated but foot remained red and tender notably neither of those would cover tetanus. patient is not diabetic. He is companied by his daughter Veronica patient denies previous history of foot infection. He simply stepped on a nail that was in a board Vitals/I&O/Wt Last Vital Signs Temp 98.2 F 12/31/24 15:30 Pulse 93 12/31/24 15:30 Resp 17 12/31/24 15:30 BP 123/80 12/31/24 15:30 Pulse Ox 94 12/31/24 15:30 O2 Del Method Room Air 12/31/24 15:30 12/31/24 12/31/24 12/31/24 06:59 14:59 22:59 Intake Total 300.00 / 600.00 1290 / 1290 Balance 300.00 / 600.00 1290 / 1290 Weight last 48 hrs Weight 102.512 kg Weight 104.009 kg Weight 103.873 kg Physical Exam 2 Narrative: General well-developed well-nourished male in no acute cardiopulmonary stress CV regular rate and rhythm Lungs clear to auscultation bilaterally Abdomen positive bowel sounds soft Calves no edema Right foot with puncture wound at the right plantar fourth toe MTP. This is not significantly tender Data 12/31/24 02:11 12/31/24 02:11 Micro: Microbiology 12/30/24 14:53 Blood Culture - Preliminary Blood NEGATIVE TO DATE 12/30/24 13:03 Blood Culture - Preliminary Blood NEGATIVE TO DATE MRI: Radiologist's impression: Negative for abscess A&P Assessment and plan (1) Cellulitis of foot, right: Patient is placed on Zosyn and vancomycin Podiatry was consulted and asked for an MRI this was ordered. This does not appear to be strep as it is not very inflamed or red. The redness is mild and the white count is not high. More consistent with staph or potentially tetanus or Pseudomonas. The Zosyn should cover both of those. If doing well anticipate discharge on Augmentin plus ciprofloxacin (2) Puncture wound of right foot: As above PDMP PDMP Reviewed: Not Reviewed Attestations 2 Medical Necessity Statement*: Patient remained in the hospital for IV antibiotics Coding Level of Care Code Acute Code for [facility] Diagnoses Cellulitis of foot, right L03.115 Puncture wound of right foot, initial encounter S91.331A Encounter type: initial encounter Time Spent (min) 30
[2024-12-31] MEDS: vancomycin 1,500 MG/300 ML PIGGYBACK 200 MG IV (16:46)
--- NOTE | 2024-12-31 17:39 | PC.NURSE ---
Moiz paused to start Vanco.
[2024-12-31 19:30] VITALS: BP 152/81; PULSE 98; RESP 18; TEMP 36.5; O2SAT 96
[2024-12-31] MEDS: ibuprofen 200 mg Tablet 400 MG PO (21:54)
[2024-12-31 23:28] VITALS: BP 126/84; PULSE 86; RESP 18; TEMP 36.7; O2SAT 93
[2025-01-01] MEDS: dextrose 5%-sod chloride 0.45% 1,000 ML 75 ML IV ×2 (01:09→13:16)
[2025-01-01 04:00] VITALS: BP 123/74; PULSE 90; RESP 18; TEMP 36.4; O2SAT 96
[2025-01-01] MEDS: vancomycin 1,500 MG/300 ML PIGGYBACK 200 MG IV ×2 (04:02→16:50)
[2025-01-01] MEDS: piperacillin-tazobactam 3.375 GM in sodium chloride 0.9% (plus) 50 ML IV ×3 (05:46→20:43)
--- NOTE | 2025-01-01 06:28 | P.PN_ITS ---
Subjective 2 Subjective: Patient seen bedside this a.m., denies any acute events overnight. Reviewed MRI findings with patient. Regular diet,. Patient's daughter and granddaughter at bedside. States he had a ultrasound for his heart at [facility] tomorrow they are planning on rescheduling this. Vitals/I&O/Wt Last Vital Signs Temp 97.5 F L 01/01/25 04:00 Pulse 90 01/01/25 04:00 Resp 18 01/01/25 04:00 BP 123/74 01/01/25 04:00 Pulse Ox 96 01/01/25 04:00 O2 Del Method Room Air 01/01/25 04:00 12/31/24 12/31/24 01/01/25 14:59 22:59 06:59 Intake Total 1290 / 1290 1323.542 / 2613.542 850 / 3463.542 Balance 1290 / 1290 1323.542 / 2613.542 850 / 3463.542 Weight last 48 hrs Weight 228 lb 8 oz Weight 226 lb Weight 229 lb 4.8 oz Weight 229 lb Physical Exam 2 Narrative: GENERAL: Patient is alert and oriented ?3 and in no acute distress. The following is a focused bilateral lower extremity exam. Accompanied by his daughter. VASCULAR: Dorsalis pedis palpable. Posterior tibial arteries palpable. Capillary refill time less than 3 seconds to the distal hallux bilaterally. Calf is supple and nontender proximally and distally. Pedal hair growth present. Edema to the right foot. NEUROLOGICAL: Protective sensation intact 9/10 sites, tested with [place] Melany monofilament to bilateral feet. DERMATOLOGICAL: Puncture wound subsecond metatarsal head right foot has no drainage, puncture wound is not open. Erythema about the forefoot streaking laterally to the right lateral ankle. MUSCULOSKELETAL: No crepitus with palpation of soft tissue at the right foot. Exquisite tenderness palpation right forefoot. Data 12/31/24 02:11 12/31/24 02:11 Micro: Microbiology 12/30/24 14:53 Blood Culture - Preliminary Blood NEGATIVE TO DATE 12/30/24 13:03 Blood Culture - Preliminary Blood NEGATIVE TO DATE A&P Assessment and plan (1) Cellulitis of foot, right: (2) Puncture wound of right foot: (3) Cellulitis of right ankle: Plan 74-year-old male presenting with increased redness and failed outpatient antibiotics management for a right foot puncture wound. The clinical picture suggests cellulitis with extension towards the ankle, necessitating advanced imaging to exclude an abscess or foreign body. Given previous incomplete antibiotic coverage, inpatient management with IV antibiotics is advised, alongside MRI evaluation to guide further intervention, including possible surgical drainage. X-ray taken in emergency department negative for foreign body, negative for soft tissue emphysema, negative for acute osseous abnormality. - Receiving empiric IV antibiotics for cellulitis right lower extremity secondary to puncture wound. - Reviewed MRI right foot with and without contrast, negative for foreign body, negative for osteomyelitis, negative for abscess. MRI negative for drainable abscess, recommend continuing empiric IV antibiotics and monitoring his response, no plans for surgical intervention today given MRI findings, will continue to follow and assess daily his clinical response to treatment. Clinically he needs to continue empiric IV antibiotics, some improvement in intensity of cellulitis at the right foot this a.m. Podiatry will follow. PDMP PDMP Reviewed: Not Reviewed Attestations 2 Medical Necessity Statement*: Cellulitis right lower extremity requires continued IV antibiotics Coding Level of Care Code Acute Code for [facility] Diagnoses Cellulitis of foot, right L03.115 Puncture wound of right foot, initial encounter S91.331A Encounter type: initial encounter Cellulitis of right ankle L03.115
[2025-01-01 08:00] VITALS: BP 156/74; PULSE 89; RESP 17; TEMP 36.4; O2SAT 96
[2025-01-01] MEDS: docusate sodium 100 mg Capsule PO ×2 (08:44→16:50)
[2025-01-01] MEDS: heparin 5,000 unit/mL INJ 1 mL 5000 UNIT SUBCUT ×2 (08:44→20:43)
[2025-01-01] MEDS: diphenhydrAMINE 25 mg Capsule PO ×2 (08:57→16:49)
--- NOTE | 2025-01-01 11:08 | PHA.VACGOAL ---
Vancomycin Goal - Goal Vancomycin Indication:: SSTI - Therapy Current therapy:: Pip/Tazo Day of therpy:: Day []of [] . Actual body weight (kg): 228 lb 8 oz - Data Labs: WBC 8.37 10^3/uL (3.29-11.43) 12/31/24 02:11 RBC 4.53 10^6/uL (3.85-5.65) 12/31/24 02:11 Hgb 14.80 g/dL (11.27-16.99) 12/31/24 02:11 Hct 44.5 % (37-53) 12/31/24 02:11 MCV 98.2 fl (82-101) 12/31/24 02:11 MCH 32.7 pg (27-33) 12/31/24 02:11 MCHC 33.3 g/dL (30-55) 12/31/24 02:11 RDW 13.3 % (12.1-15.1) 12/31/24 02:11 Sodium 137 mmol/L (136-145) 12/31/24 02:11 Potassium 3.7 mmol/L (3.5-5.1) 12/31/24 02:11 Chloride 99 mmol/L (98-107) 12/31/24 02:11 Carbon Dioxide 24 mmol/L (22-29) 12/31/24 02:11 Anion Gap 17.7 (5-19) 12/31/24 02:11 BUN 12 mg/dL (8-23) 12/31/24 02:11 Creatinine 0.8 mg/dL (0.7-1.2) 12/31/24 02:11 GFR Calculation Not Reportable 12/31/24 02:11 Treatment plan:: new consult Regimen:: 1500 MG Q12H TROUGH 01/02 091
[2025-01-01 12:00] VITALS: BP 149/86; PULSE 97; RESP 17; TEMP 36.4; O2SAT 96
--- NOTE | 2025-01-01 12:52 | P.PN_ITS ---
Subjective 2 Subjective: 74-year-old male says his foot is looking better. He has both his hearing aids today so he is able to converse better. 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 He is retired now. Patient has chocolates and candy and sugared soda at bedside Vitals/I&O/Wt Last Vital Signs Temp 97.6 F 01/01/25 12:00 Pulse 97 01/01/25 12:00 Resp 17 01/01/25 12:00 BP 149/86 01/01/25 12:00 Pulse Ox 96 01/01/25 12:00 O2 Del Method Room Air 01/01/25 12:00 12/31/24 01/01/25 01/01/25 22:59 06:59 14:59 Intake Total 1323.542 / 2613.542 850 / 3463.542 530 / 530 Balance 1323.542 / 2613.542 850 / 3463.542 530 / 530 Weight last 48 hrs Weight 103.646 kg Weight 102.512 kg Weight 104.009 kg Physical Exam 2 Narrative: General well-developed well-nourished male in no acute cardiopulmonary stress CV regular rate and rhythm Lungs clear to auscultation bilaterally Abdomen positive bowel sounds soft Calves no edema Right foot with puncture wound at the right plantar fourth toe MTP. This is not significantly tender. There is still pale erythema on the dorsal lateral foot Data 12/31/24 02:11 12/31/24 02:11 Micro: Microbiology 12/30/24 14:53 Blood Culture - Preliminary Blood NEGATIVE TO DATE 12/30/24 13:03 Blood Culture - Preliminary Blood NEGATIVE TO DATE A&P Assessment and plan (1) Cellulitis of foot, right: Patient is placed on Zosyn and vancomycin Podiatry was consulted and asked for an MRI this was ordered. This does not appear to be strep as it is not very inflamed or red. The redness is mild and the white count is not high. More consistent with staph or potentially tetanus or Pseudomonas. The Zosyn should cover both of those. If doing well anticipate discharge on Augmentin plus ciprofloxacin This has been slow to improve. Recommend continuing on IV antibiotics will elevate the leg further (2) Puncture wound of right foot: As above PDMP PDMP Reviewed: Not Reviewed Attestations 2 Medical Necessity Statement*: Additional time in the hospital for leg elevation, IV antibiotics as this failed 2 attempts at oral antibiotics Coding Level of Care Code 35727 Diagnoses Cellulitis of foot, right L03.115 Puncture wound of right foot, initial encounter S91.331A Encounter type: initial encounter Time Spent (min) 25
[2025-01-01 16:00] VITALS: BP 144/74; PULSE 103; RESP 18; TEMP 36.4; O2SAT 95
[2025-01-01] MEDS: ibuprofen 200 mg Tablet 400 MG PO (16:50)
[2025-01-01 20:00] VITALS: BP 147/79; PULSE 90; RESP 16; TEMP 36.4; O2SAT 95
[2025-01-02] VITALS: BP 138/72; PULSE 82; RESP 17; TEMP 36.4; O2SAT 96
[2025-01-02] MEDS: dextrose 5%-sod chloride 0.45% 1,000 ML 75 ML IV (03:27)
[2025-01-02 04:00] VITALS: BP 146/72; PULSE 80; RESP 17; TEMP 36.4; O2SAT 96
[2025-01-02] MEDS: vancomycin 1,500 MG/300 ML PIGGYBACK 200 MG IV ×2 (04:27→17:12)
[2025-01-02 05:06] LABS: Vancomycin Trough 10.3 ug/mL (10-15)
[2025-01-02] MEDS: piperacillin-tazobactam 3.375 GM in sodium chloride 0.9% (plus) 50 ML IV ×3 (05:57→21:45)
--- NOTE | 2025-01-02 06:35 | P.PN_ITS ---
Subjective 2 Subjective: Patient seen bedside this a.m., denies any acute events overnight. Reviewed MRI findings with patient. Regular diet,. Patient's daughter and granddaughter at bedside. Vitals/I&O/Wt Last Vital Signs Temp 97.5 F L 01/02/25 04:00 Pulse 80 01/02/25 04:00 Resp 17 01/02/25 04:00 BP 146/72 01/02/25 04:00 Pulse Ox 96 01/02/25 04:00 O2 Del Method Room Air 01/02/25 04:00 01/01/25 01/01/25 01/02/25 14:59 22:59 06:59 Intake Total 1438.75 / 1438.75 350 / 1788.75 1350 / 3138.75 Balance 1438.75 / 1438.75 350 / 1788.75 1350 / 3138.75 Weight last 48 hrs Weight 231 lb Weight 228 lb 8 oz Physical Exam 2 Narrative: GENERAL: Patient is alert and oriented ?3 and in no acute distress. The following is a focused bilateral lower extremity exam. Accompanied by his daughter. VASCULAR: Dorsalis pedis palpable. Posterior tibial arteries palpable. Capillary refill time less than 3 seconds to the distal hallux bilaterally. Calf is supple and nontender proximally and distally. Pedal hair growth present. Edema to the right foot. NEUROLOGICAL: Protective sensation intact 9/10 sites, tested with [place] Melany monofilament to bilateral feet. DERMATOLOGICAL: Puncture wound subsecond metatarsal head right foot has no drainage, puncture wound is not open. Erythema about the forefoot streaking laterally to the right lateral ankle. MUSCULOSKELETAL: No crepitus with palpation of soft tissue at the right foot. Exquisite tenderness palpation right forefoot. Data 12/31/24 02:11 12/31/24 02:11 A&P Assessment and plan (1) Cellulitis of foot, right: (2) Puncture wound of right foot: (3) Cellulitis of right ankle: Plan 74-year-old male presenting with increased redness and failed outpatient antibiotics management for a right foot puncture wound. The clinical picture suggests cellulitis with extension towards the ankle, necessitating advanced imaging to exclude an abscess or foreign body. Given previous incomplete antibiotic coverage, inpatient management with IV antibiotics is advised, alongside MRI evaluation to guide further intervention, including possible surgical drainage. X-ray taken in emergency department negative for foreign body, negative for soft tissue emphysema, negative for acute osseous abnormality. - Receiving empiric IV antibiotics for cellulitis right lower extremity secondary to puncture wound. - Reviewed MRI right foot with and without contrast, negative for foreign body, negative for osteomyelitis, negative for abscess. Scant improvement in cellulitis to the right lower extremity, [place] of intensity is at the right second metatarsal phalangeal joint this corresponds to the puncture wound plantarly, suspicion for possible septic joint, given minimal improvement with empiric IV antibiotics over the past 3 days I discussed potential need for I&D of the right foot, will round this afternoon for reassessment of the foot and further discuss possible I&D tomorrow 01/03/2025. Podiatry will follow. PDMP PDMP Reviewed: Not Reviewed Attestations 2 Medical Necessity Statement*: Cellulitis right lower extremity from puncture wound requires continued IV antibiotics possible surgical invention Coding Level of Care Code Acute Code for [facility] Diagnoses Cellulitis of foot, right L03.115 Puncture wound of right foot, initial encounter S91.331A Encounter type: initial encounter Cellulitis of right ankle L03.115
[2025-01-02 08:00] VITALS: BP 147/99; PULSE 97; RESP 17; TEMP 36.6; O2SAT 95
[2025-01-02] MEDS: docusate sodium 100 mg Capsule PO ×2 (08:03→17:11)
[2025-01-02] MEDS: heparin 5,000 unit/mL INJ 1 mL 5000 UNIT SUBCUT ×2 (08:03→21:45)
[2025-01-02] MEDS: diphenhydrAMINE 25 mg Capsule PO (08:06)
[2025-01-02 12:00] VITALS: BP 168/93; PULSE 94; RESP 18; TEMP 36.6; O2SAT 96
--- NOTE | 2025-01-02 12:25 | P.PN_ITS ---
Subjective 2 Subjective: 74-year-old male states he was evaluated by prize fighter this morning with plans to be reevaluated 3 PM. If not improving plan is to schedule him for surgery in the morning Patient concurs that his foot is not getting well Vitals/I&O/Wt Last Vital Signs Temp 97.9 F 01/02/25 12:00 Pulse 94 01/02/25 12:00 Resp 18 01/02/25 12:00 BP 168/93 01/02/25 12:00 Pulse Ox 96 01/02/25 12:00 O2 Del Method Room Air 01/02/25 12:00 01/01/25 01/02/25 01/02/25 22:59 06:59 14:59 Intake Total 350 / 1788.75 1350 / 3138.75 360 / 360 Balance 350 / 1788.75 1350 / 3138.75 360 / 360 Weight last 48 hrs Weight 104.78 kg Weight 103.646 kg Physical Exam 2 Narrative: General well-developed well-nourished male in no acute cardiopulmonary stress CV regular rate and rhythm Lungs clear to auscultation bilaterally Abdomen positive bowel sounds soft Calves no edema Right foot with puncture wound at the right plantar fourth toe MTP. This is not significantly tender. There is still pale erythema on the dorsal lateral foot Foot remains inflamed. Tenderness is minimal Data 12/31/24 02:11 12/31/24 02:11 A&P Assessment and plan (1) Cellulitis of foot, right: Patient is placed on Zosyn and vancomycin Podiatry was consulted and asked for an MRI this was ordered. This does not appear to be strep as it is not very inflamed or red. The redness is mild and the white count is not high. More consistent with staph or potentially tetanus or Pseudomonas. The Zosyn should cover both of those. If doing well anticipate discharge on Augmentin plus ciprofloxacin This has been slow to improve. Recommend continuing on IV antibiotics will elevate the leg further I am going to give a dose of Decadron to see if that helps with the inflammation. Repeat CBC and sed rate. Add procalcitonin (2) Puncture wound of right foot: As above PDMP PDMP Reviewed: Not Reviewed Attestations 2 Medical Necessity Statement*: Patient requires additional midnight for monitoring of foot and potentially needing surgery for washout Coding Level of Care Code 34029 Diagnoses Cellulitis of foot, right L03.115 Puncture wound of right foot, initial encounter S91.331A Encounter type: initial encounter Time Spent (min) 35
[2025-01-02 12:38] LABS: Basophils # 0.1 10^3/uL (0.0-0.1); Basophils % 0.8 %; Eosinophils # 0.2 10^3/uL (0.0-0.8); Hematocrit 41.7 % (37-53); Lymphocytes # 2.7 10^3/uL (0.8-4.8); Lymphocytes % 32.1 %; Mean Corpuscular HGB Conc 33.6 g/dL (30-55); Mean Corpuscular Hemoglobin 33.4 pg (27-33); Mean Corpuscular Volume 99.5 fl (82-101); Mean Platelet Volume 12.7 fL (7.4-10.4); Monocytes # 0.9 10^3/uL (0.2-0.9); Monocytes % 11.2 %; Neutrophils % 53.4 %; Nucleated Red Blood Cells % 0 %; Platelet Count 201 10^3/cmm (157-399); Red Blood Count 4.19 10^6/uL (3.85-5.65); Red Cell Distribution Width 13.6 % (12.1-15.1); White Blood Count 8.42 10^3/uL (3.29-11.43)
[2025-01-02] MEDS: dexamethasone 4 mg/mL INJ PO (12:44)
[2025-01-02 12:47] LABS: Erythrocyte Sedimentation Rate 11 mm/hr (0-10)
[2025-01-02 13:14] LABS: Procalcitonin 0.05 ng/mL (0-0.5)
--- NOTE | 2025-01-02 13:44 | PC.SOCIAL ---
IMM updated IMM dated and initialed, Copy given to patient and copy placed in chart
[2025-01-02 16:00] VITALS: BP 173/84; PULSE 106; RESP 18; TEMP 36.5; O2SAT 96
[2025-01-02 20:00] VITALS: BP 159/97; PULSE 112; RESP 16; TEMP 36.4; O2SAT 94
[2025-01-02] MEDS: ibuprofen 200 mg Tablet 400 MG PO (22:02)
[2025-01-03] VITALS (11 sets, daily range): BP systolic 122–160; BP diastolic 66–98; PULSE 75–108; RESP 16–22; TEMP 36.3–36.7; O2SAT 93–97
[2025-01-03] MEDS: vancomycin 1,500 MG/300 ML PIGGYBACK 200 MG IV ×2 (04:14→16:26)
[2025-01-03] MEDS: piperacillin-tazobactam 3.375 GM in sodium chloride 0.9% (plus) 50 ML IV ×3 (05:58→22:18)
[2025-01-03] MEDS: dextrose 5%-sod chloride 0.45% 1,000 ML 75 ML IV ×2 (05:59→22:16)
--- NOTE | 2025-01-03 06:44 | W.PM.OPSUD ---
Surgery/Procedure H&P Update DATE OF PROCEDURE: January 03, 2025 DATE H&P PERFORMED: 12/30/24 H&P UPDATE INFORMATION: I have reviewed H&P completed within last 30 days, I have examined patient prior to procedure and No changes to prior documentation PLANNED PROCEDURE: Operation Date: 01/03/25 07:00 Proposed Procedures p Incision And Drainage(Right) - Ge Liu DPM
--- NOTE | 2025-01-03 06:51 | P.ANESASSM_ITS ---
Pre-Anesthetic Assessment Height/Weight: Height 6 ft 3 in Weight 117 lb Temp Pulse Resp BP Pulse Ox O2 Del Method 98.1 F 83 16 130/72 97 Room Air 01/03/25 04:00 01/03/25 04:00 01/03/25 04:00 01/03/25 04:00 01/03/25 04:00 01/03/25 04:00 Preop Diagnosis: Cellulitis Operation Date: 01/03/25 07:00 Proposed Procedures p Incision And Drainage(Right) - Ge Liu DPM Was Beta Simeon taken within 24 hours: N/A Was Clonidine taken within 24 hours: N/A Last intake: Intake Last Liquid Date 01/02/25 Last Solid Date 01/02/25 Social Tobacco and No alcohol Exam alert, oriented x 3, clear to auscultation bilaterally and regular rate & rhythm Airway Submandibular: within normal limits Mallampati: Class III Comments: Comments: Poor dentition, denies any loose Anesthetic Plan ASA status: 3 Anesthesia: General Other: No prior issues with anesthesia NPO since yesterday evening Presented 12/30/2024 with cellulitis after stepping on a nail. Has been on antibiotics since that time History of A-fib on chronic apixaban. Last taken 12/30/2024 Hypertension on hydrochlorothiazide and losartan as well as metoprolol Labs reviewed acceptable for procedure Plan for MAC anesthesia with local via surgeon Medications/Allergies Home Medications ?Medication ?Instructions ?Recorded ?Confirmed ?Last Taken ?Type metoprolol succinate 25 mg See Rx Instructions .Route 01/24/24 12/30/24 12/30/24 Rx tablet,extended release 24 hr .COMPLEX #180 tabs allopurinol 300 mg tablet See Rx Instructions .Route 0 11/30/24 12/30/24 12/30/24 Rx .COMPLEX #90 tabs hydrochlorothiazide 25 mg tablet See Rx Instructions . Route 12/14/24 12/30/24 12/30/24 Rx .COMPLEX #90 tabs losartan 50 mg tablet See Rx Instructions .Route 0 12/14/24 12/30/24 12/30/24 Rx .COMPLEX #90 tabs Lactobacillus acidophilus 100 mg PO TID #30 caps 12/2712/30/24 12/30/24 Rx (Acidophilus capsule) clindamycin HCl 300 mg capsule 300 mg PO QID #40 caps 12/27/24 12/30/24 12/30/24 Rx apixaban 5 mg tablet (Eliquis) 5 mg PO BID anticoagula tion due to 12/28/24 12/30/24 12/30/24 Rx afib #60 tabs ciprofloxacin HCl 500 mg tablet 500 mg PO BID 10 days #20 tabs 12/28/24 12/30/24 Unknown Rx Allergies Allergy/AdvReac Type Severity Reaction Status Date / Time No Known Allergies Allergy Verified 12/28/24 10:26 Current Medications Generic Name Dose Route Start Last Admin Trade Name Freq PRN Reason Stop Dose Admin Diphenhydramine HCl 25 mg 01/01/25 08:48 01/02/25 08:06 Diphenhydramine 25 Mg Capsule PO 25 mg On Hold: 01/03/25 06:47 Q6H PRN Administration Comment: Order held by Process ALLERGIES Transfer Docusate Sodium 100 mg 12/30/24 20:00 01/02/25 17:11 Docusate Sodium 100 Mg Capsule PO 100 mg On Hold: 01/03/25 06:47 BID NAILA Administration Comment: Order held by Process Transfer Heparin Sodium (Porcine) 5,000 unit 12/30/24 21:00 01/02/25 21:45 Heparin 5,000 Unit/Ml Inj 1 Ml SUBCUT 5,000 unit On Hold: 01/03/25 06:47 Q12H NAILA Administration Comment: Order held by Process Transfer Piperacillin Sod/Tazobactam 50 mls @ 12.5 mls/hr 12/30/24 22:00 01/03/25 05:58 Sod 3.375 gm/ Sodium Chloride IV 12.5 mls/hr Q8H NAILA Administration Dextrose/Sodium Chloride 1,000 mls @ 75 mls/hr 12/30/24 23:00 01/03/25 05:59 Dextrose 5%-Sod Chloride 0.45% IV 75 mls/hr On Hold: 01/03/25 06:47 .[id number] NAILA Administration Comment: Order held by Process Transfer Vancomycin HCl 1,500 mg in 300 mls @ 200 mls/hr 12/31/24 16:30 01/03/25 06:00 Vancocin IV Infused On Hold: 01/03/25 06:47 Q12H NAILA Infusion Comment: Order held by Process Transfer Ibuprofen 400 mg 12/30/24 20:00 01/02/25 22:02 Ibuprofen 200 Mg Tablet PO 400 mg On Hold: 01/03/25 06:47 Q6H PRN Administration Comment: Order held by Process Mild/Mod Pain Or Temp >/= 101 Transfer [facility] Anesthesia Medical History Atrial fibrillation Gout Essential hypertension Family History Father , Heart attack at 45 No problems noted. Grandmother , heart attack at 73 No problems noted. Social History Smoking and tobacco/nicotine status: heavy tobacco/nicotine user Data Anesthesia 01/02/25 04:25 12/31/24 02:11 Short CBC 01/02/25 Range/Units 04:25 WBC 8.42 (3.29-11.43) 10^3/uL Hgb 14.00 (11.27-16.99) g/dL Hct 41.7 (37-53) % MCV 99.5 (82-101) fl Plt Count 201 (157-399) 10^3/cmm Neut % (Auto) 53.4 % Neut # (Auto) 4.50 (1.8-7.7) 10^3/uL Coags 01/02/25 04:25 ESR 11 H
[2025-01-03] MEDS: sodium chloride 0.9% 1,000 ML 30 ML IV (06:54)
[2025-01-03] MEDS: lidocaine 2% INJ 20 mL INJECTION (07:17)
--- NOTE | 2025-01-03 07:31 | W.PM.BPON ---
Date of Procedure: 10/28/23 Surgeon: Ge Liu DPM Film Processing Supervisor(s): Janis Procedure(s) performed: Incision and debridement right foot Findings of the procedure(s): No purulence or signs of septic joint right foot. Estimated blood loss: 2 mL Specimen(s) removed: none Post-operative diagnosis: Puncture wound with cellulitis right foot.
--- NOTE | 2025-01-03 07:32 | P.OP_ITS ---
Operative Report Date of procedure: January 03, 2025 Pre-op diagnosis: Puncture wound and cellulitis right foot Post-op diagnosis: Puncture wound and cellulitis right foot Procedure done: Incision and debridement right foot down to myofascial layer. CPT code 25027 Implants: 4-0 nylon Specimens removed/disposition: No specimens Pathology: None Surgeon: Ge Liu DPM Hand Binder Stripper: Janis Estimated blood loss: 2 8 IV fluids: See intraoperative documentation Urine output: No urine output Complications: No complications Findings: No purulence, no clinical signs of septic joint Brief History: Continued cellulitis at the base of the right second toe at metatarsal phalangeal joint, tenderness to palpation at right second metatarsal phalangeal joint, concern for septic joint corresponding to puncture wound being directly plantar to right second metatarsal phalangeal joint. Given a poor response to empiric IV antibiotics recommending incision and drainage for possible septic joint, patient is in agreements. Discussed risks and benefits at length. I reviewed at length with the patient, the risks, potential complications, benefits, alternatives, expectations, and typical outcomes associated with the surgery. The risks and potential complications were explained in detail, including but not limited to infection, wound dehiscence or soft tissue complications, bleeding and hematoma, chronic edema, neuritis or nerve damage producing numbness or chronic pain, CRPS, failure to relieve pain or worsening pain, thick / painful / unsightly scar, limited motion / stiffness, malposition, delayed union, malunion, or nonunion, fracture, reaction to implants, anesthetic complications, venous thromboembolism, and deformity recurrence. I discussed the notion of no regrets with the patient as it pertains to complications and outcomes. The patient seemed to understand the nature of the proposed care and required convalescence. They asked appropriate questions, answered to their satisfaction. They are aware no guarantees can be made as to a satisfactory outcome and they understand there may be other possible unforeseen complications or outcomes not listed here that will be treated accordingly if they arise. There were no written or implied guarantees given to the patient. They gave informed consent to proceed. Procedure: Under mild sedation the patient was brought to the operating room and remained on the gurney in supine position. A timeout was performed. Anesthesia was then administered by the anesthesia service. Local anesthesia was injected by myself consisting of 20 cc of 2% lidocaine plain in a right second ray block fashion. Well-padded pneumatic tourniquet applied to the right ankle. Right lower extremity was scrubbed, prepped and draped utilizing normal aseptic technique. Right foot was then elevated and tourniquet inflated to 250 mmHg. Attention was directed to the right forefoot where cellulitis most intensely appreciated at the dorsal aspect of the right second metatarsal phalangeal joint with streaking across the midfoot to the level of the right lateral ankle. No crepitus appreciated with soft tissue palpation. No crepitus with range of motion of the right second metatarsal ankle joint. Incision was made directly over the dorsal aspect of the right second metatarsal phalangeal joint through skin with a #15 blade with dissection carried down through subcutaneous tissue to the layer joint capsule of the second metatarsal plantar joint utilizing a combination of sharp and blunt technique. Care was taken to retract and preserve neurovascular and tendinous structures. All bleeders were ligated and cauterized as necessary. Scant devitalized tissue was encountered this was sharply and excisionally debrided down to myofascial layer with pickups and a #15 blade. No purulence or abscess was encountered, joint capsule was visualized and noted to not be distended. Incision and dissection was carried down to myofascial layer, tendon and joint capsule, and the incision encountered serous fluid however no uzma purulence was visualized. The incision was irrigated with copious amounts of sterile saline solution and skin closed with 4-0 nylon. Dressing consisting of Xeroform, sterile 4 x 4 gauze, Kerlix and Yousif wrap was applied. Tourniquet was deflated and a prompt hyperemic response is noted to the distal digits of the right foot. Patient tolerated the procedure and anesthesia well and was transferred to the PACU with vital signs stable and vascular status intact. Following a period of postoperative monitoring he will be transferred back to the floor to continue empiric antibiotics. Will reassess tomorrow's clinical response to I&D and continued IV antibiotic therapy. Hopeful for discharge tomorrow should there be clinical improvement on the oral antibiotic regimen.
--- NOTE | 2025-01-03 07:40 | ANE.PACU2 ---
Inpatient post-anesthesia follow up: Airway intact: Yes Vital signs: Temperature 97.7 F Pulse Rate 106 Respiratory Rate 20 Blood Pressure 154/84 Pulse Oximetry 96 Oxygen Delivery Me thod Room Air Oxygen Flow Rate Fraction of Inspir ed Oxygen Hydration adequate: Yes Nausea and vomiting: No Pain level: 1 Mental status: Baseline
[2025-01-03] MEDS: heparin 5,000 unit/mL INJ 1 mL 5000 UNIT SUBCUT ×2 (08:38→22:18)
[2025-01-03] MEDS: docusate sodium 100 mg Capsule PO ×2 (08:38→17:05)
--- NOTE | 2025-01-03 15:32 | P.PN_ITS ---
Subjective 2 Subjective: 74-year-old male underwent sindi ridement of infected foot this morning. Dr. Liu states there was not much infection in the foot. Patient states his pain is minimal and he feels like it has improved Vitals/I&O/Wt Last Vital Signs Temp 97.7 F 01/03/25 11:08 Pulse 106 H 01/03/25 11:08 Resp 20 H 01/03/25 11:08 BP 154/84 01/03/25 11:08 Pulse Ox 96 01/03/25 11:08 O2 Del Method Room Air 01/03/25 11:08 01/03/25 01/03/25 01/03/25 06:59 14:59 22:59 Intake Total 350 / 2830 700 / 700 Output Total 2 / 2 Balance 350 / 2830 698 / 698 Weight last 48 hrs Weight 53.07 kg Weight 104.78 kg Physical Exam 2 Narrative: General well-developed well-nourished male in no acute cardiopulmonary distress CV irregular rate is controlled Lungs clear to auscultation bilaterally Abdomen soft nontender nondistended Right foot is in a dressing he is able to wiggle his toes toes are warm I did not remove the dressing Data 01/02/25 04:25 12/31/24 02:11 A&P Assessment and plan (1) Cellulitis of foot, right: Patient is placed on Zosyn and vancomycin Podiatry was consulted and asked for an MRI this was ordered. This does not appear to be strep as it is not very inflamed or red. The redness is mild and the white count is not high. More consistent with staph or potentially tetanus or Pseudomonas. The Zosyn should cover both of those. If doing well anticipate discharge on Augmentin plus ciprofloxacin White count and procalcitonin have not been elevated but his foot was not improving with significant erythema and he underwent exploratory surgery with washout this morning infection noted but no abscess (2) Puncture wound of right foot: As above (3) Irregular heartbeat: Patient is not sure what his rhythm was in the past. By exam it is sinus rhythm with PACs or PVCs but may in fact be A-fib. Will get an EKG (4) Atrial fibrillation: Patient is not sure what his rhythm was in the past. By exam it is sinus rhythm with PACs or PVCs but may in fact be A-fib. Will get an EKG PDMP PDMP Reviewed: Not Reviewed Attestations 2 Medical Necessity Statement*: will need to be monitored overnight for wound evaluation in morning and likely discharge at that time Coding Level of Care Code Acute Code for [facility] Diagnoses Cellulitis of foot, right L03.115 Puncture wound of right foot, initial encounter S91.331A Encounter type: initial encounter Irregular heartbeat I49.9 Atrial fibrillation I48.91 Time Spent (min) 25
--- NOTE | 2025-01-03 16:11 | ECG_ITS ---
[facility] 2025[facility] Pat Name: Jasper Menjivar Department: Room: 277 Gender: Male Borough Coordinator: : 1950 Requested By: Miguel Mcdermott Order Number: [id number] Jason MD: Lisset Cho M.D. Measurements Intervals [place] Rate: 117 P: 0 KS: 0 QRS: 2 QRSD: 126 T: 0 QT: 340 QTc: 476 Interpretive Statements ATRIAL FIBRILLATION WITH RAPID VENTRICULAR RESPONSE MODERATE INTRAVENTRICULAR CONDUCTION DELAY [110+ ms QRS DURATION] ABNORMAL RHYTHM ECG No previous ECG available for comparison Electronically Signed On 01-03-2025 18:14:35 CDT by Lisset Cho M.D. [email or web address]
[2025-01-03] MEDS: ibuprofen 200 mg Tablet 400 MG PO (22:18)
[2025-01-04] VITALS (7 sets, daily range): BP systolic 141–168; BP diastolic 79–108; PULSE 62–96; RESP 16–18; TEMP 36.4–36.8; O2SAT 95–97
[2025-01-04] MEDS: vancomycin 1,500 MG/300 ML PIGGYBACK 200 MG IV (04:21)
--- NOTE | 2025-01-04 04:47 | PC.NURSE ---
patient resting in bed with eyes open reading a book this nurse in room for 0430 meds and to assess pain. patient has no complaints of pain at this time
--- NOTE | 2025-01-04 06:16 | P.PN_ITS ---
Subjective 2 Subjective: Patient seen bedside this a.m., daughter and granddaughter are present. Denies pain at the right foot. 1 day status post I&D right foot date of operation 01/03/2025. He is anticipating discharge home today. Vitals/I&O/Wt Last Vital Signs Temp 98.0 F 01/04/25 04:00 Pulse 83 01/04/25 04:00 Resp 17 01/04/25 04:00 BP 141/79 01/04/25 04:00 Pulse Ox 97 01/04/25 04:00 O2 Del Method Room Air 01/04/25 04:00 01/03/25 01/03/25 01/04/25 14:59 22:59 06:59 Intake Total 700 / 700 20090 290 / 3000 Output Total / Balance 698 / 698 2009 290 / 2998 Weight last 48 hrs Weight 240 lb 1.6 oz Weight 117 lb Physical Exam 2 Narrative: GENERAL: Patient is alert and oriented ?3 and in no acute distress. The following is a focused bilateral lower extremity exam. Accompanied by his daughter. VASCULAR: Dorsalis pedis palpable. Posterior tibial arteries palpable. Capillary refill time less than 3 seconds to the distal hallux bilaterally. Calf is supple and nontender proximally and distally. Pedal hair growth present. Edema to the right foot. NEUROLOGICAL: Protective sensation intact 9/10 sites, tested with [place] Mel[place] monofilament to bilateral feet. DERMATOLOGICAL: Puncture wound subsecond metatarsal head right foot has no drainage, puncture wound is not open. Erythema is resolved with the right ankle and right midfoot. Residual erythema is less intense at the right forefoot. MUSCULOSKELETAL: No crepitus with palpation of soft tissue at the right foot. No pain to palpation right forefoot. Data 01/02/25 04:25 12/31/24 02:11 A&P Assessment and plan (1) Cellulitis of foot, right: (2) Puncture wound of right foot: As above (3) Cellulitis of right ankle: Plan 74-year-old male presenting with increased redness and failed outpatient antibiotics management for a right foot puncture wound. The clinical picture suggests cellulitis with extension towards the ankle, necessitating advanced imaging to exclude an abscess or foreign body. Given previous incomplete antibiotic coverage, inpatient management with IV antibiotics is advised, alongside MRI evaluation to guide further intervention, including possible surgical drainage. X-ray taken in emergency department negative for foreign body, negative for soft tissue emphysema, negative for acute osseous abnormality. Incision and debridement performed 01/03/2025 right foot due to slow response to IV antibiotics over the course of 3-1/2 days. He is 1 day status post I&D with significant improvement clinically to the right foot. No further surgical intervention anticipated during this hospitalization. Recommend discharge planning from podiatry standpoint with follow-up in podiatry clinic Tuesday next week. Agree with Augmentin and ciprofloxacin oral antibiotic regimen at discharge. PDMP PDMP Reviewed: Not Reviewed Attestations 2 Medical Necessity Statement*: Puncture wound, cellulitis, IV antibiotics and surgical debridement Coding Level of Care Code Acute Code for [facility] Diagnoses Cellulitis of foot, right L03.115 Puncture wound of right foot, initial encounter S91.331A Encounter type: initial encounter Cellulitis of right ankle L03.115
[2025-01-04] MEDS: piperacillin-tazobactam 3.375 GM in sodium chloride 0.9% (plus) 50 ML IV (06:27)
[2025-01-04] MEDS: diphenhydrAMINE 25 mg Capsule PO (06:40)
[2025-01-04] MEDS: heparin 5,000 unit/mL INJ 1 mL 5000 UNIT SUBCUT (08:25)
[2025-01-04] MEDS: docusate sodium 100 mg Capsule PO (08:25)
--- NOTE | 2025-01-04 10:40 | P.DS_ITS ---
Discharge Providers Date of Admission: 12/30/24 15:15 Date of Discharge: January 04, 2025 Attending Provider at Admission: Samuel Lombardo DO Attending Provider at Discharge: Miguel Sanon MD Primary Care Provider: Jg Webster MD Diagnoses at Discharge Discharge Diagnosis (1) Cellulitis of foot, right: Details from hospital stay: Patient has significant swelling in the right lateral foot and the ankle. Will complete Cipro which she already has, Augmentin 500 mg 3 times daily for 7 days, probiotic, Decadron 4 mg daily for 7 days and follow-up with Dr. Liu elevate right lower extremity is much as Status: Acute (2) Puncture wound of right foot: Details from hospital stay: As above tetanus shots are up-to-date and recently given at the urgent care Status: Acute Qualifiers: Encounter type: initial encounter Qualified Code(s): S91.331A - Puncture wound without foreign body, right foot, initial encounter (3) Cellulitis of right ankle: Details from hospital stay: As above Status: Acute Reason for Visit Reason for Visit: stepped on nail - rt foot injury Brief History: Jasper Menjivar is a 74 year old male with past medical history of hypertension and atrial fibrillation on chronic anticoagulation presents after stepping on a nail . He was seen by physician and started on clindamycin. however, he started to have further extension of redness and intensification and was seen in an urgent care. That physician changed him to Cipro. And over the next few days the swelling and pain continued to worsen. He denies any fevers or chills no nausea or vomiting constipation or diarrhea In the emergency room his white count is normal and he is afebrile however he has an obvious cellulitis of the right foot. He did get a tetanus update on initial presentation. He is admitted to rule out deep infection abscess or osteomyelitis. Podiatry plans on potential surgical drainage Hospital Course Hospital Course Patient failed outpatient Cipro and clindamycin. We anticipated that this was because of lack of drainage. The sed rate was only mildly elevated and the procalcitonin was negative however the second toe remained inflamed and edematous. Patient underwent exploratory surgery and debridement with signs of inflammation and possibly infection but no pus. No additional cultures. 12/27 wound and 12/30 emergency department blood culture were negative. I gave the patient 1 dose of Decadron which seemed to help. With the additional findings in the history of gout I wonder if this is in part just inflammatory and possibly related to gout he does not have significant hot tender joint however Patient will finish out ciprofloxacin 500 mg that he has already and I added Augmentin. I have added Decadron 4 mg daily for 7 days. The patient already has a probiotic. I added potassium to his HCTZ regimen. Mobility restrictions and follow-up with Dr. Liu have already been set for and I spoke with Dr. Liu on the phone this morning Physical Exam Narrative: General well-developed well-nourished overweight male in no acute cardiopulmonary stress CV irregular rate and rhythm Lungs clear to auscultation bilaterally Abdomen positive bowel sounds soft nontender Left side no edema right side 2/4 edema Right foot is in a dressing I did not remove. It has been examined by the director client Dr. Liu Discharge Data Studies Completed and Pending Completed Studies During Hospitalization Category Date Time Status MR foot RT wo/w con [id number] Routine MRI 12/30/24 16:08 Completed Pending at discharge Category Date Time Status Blood Culture Stat Lab 12/30/24 14:53 Results Radiology Impressions Foot MRI 12/30/24 16:08 IMPRESSION: 1.Soft tissue edema without discrete fluid collection or underlying acute osteomyelitis. Laboratory Results WBC 8.42 10^3/uL (3.29-11.43) 01/02/25 04:25 RBC 4.19 10^6/uL (3.85-5.65) 01/02/25 04:25 Hgb 14.00 g/dL (11.27-16.99) 01/02/25 04:25 Hct 41.7 % (37-53) 01/02/25 04:25 MCV 99.5 fl (82-101) 01/02/25 04:25 MCH 33.4 pg (27-33) H 01/02/25 04:25 MCHC 33.6 g/dL (30-55) 01/02/25 04:25 RDW 13.6 % (12.1-15.1) 01/02/25 04:25 Plt Count 201 10^3/cmm (157-399) 01/02/25 04:25 MPV 12.7 fL (7.4-10.4) H 01/02/25 04:25 Neut % (Auto) 53.4 % 01/02/25 04:25 Lymph % (Auto) 32.1 % 01/02/25 04:25 [place] % (Auto) 11.2 % 01/02/25 04:25 Eos % (Auto) 2.0 % 01/02/25 04:25 Baso % (Auto) 0.8 % 01/02/25 04:25 Neut # (Auto) 4.50 10^3/uL (1.8-7.7) 01/02/25 04:25 Lymph # (Auto) 2.7 10^3/uL (0.8-4.8) 01/02/25 04:25 [place] # (Auto) 0.9 10^3/uL (0.2-0.9) 01/02/25 04:25 Eos # (Auto) 0.2 10^3/uL (0.0-0.8) 01/02/25 04:25 Baso # (Auto) 0.1 10^3/uL (0.0-0.1) 01/02/25 04:25 Nucleated RBC % (auto) 0 % 01/02/25 04:25 Nucleated RBCs # 0.0 /100WBC 01/02/25 04:25 ESR 11 mm/hr (0-10) H 01/02/25 04:25 Sodium 137 mmol/L (136-145) 12/31/24 02:11 Potassium 3.7 mmol/L (3.5-5.1) 12/31/24 02:11 Chloride 99 mmol/L (98-107) 12/31/24 02:11 Carbon Dioxide 24 mmol/L (22-29) 12/31/24 02:11 Anion Gap 17.7 (5-19) 12/31/24 02:11 BUN 12 mg/dL (8-23) 12/31/24 02:11 Creatinine 0.8 mg/dL (0.7-1.2) 12/31/24 02:11 GFR Calculation Not Reportable 12/31/24 02:11 Glucose 112 mg/dL (65-115) 12/31/24 02:11 Calculated Osmolality 285 mOsm/kg (285-295) 12/31/24 02:11 Calcium 9.3 mg/dL (8.5-10.5) 12/31/24 02:11 C-Reactive Protein 16.7 mg/L (0.0-4.9) H 12/30/24 13:03 Procalcitonin 0.05 ng/mL (0-0.5) 01/02/25 04:25 Vancomycin Trough 10.3 ug/mL (10-15) 01/02/25 04:25 Vitals Last Vital Signs Temp 98.0 F 01/04/25 07:40 Pulse 62 01/04/25 07:40 Resp 16 01/04/25 07:40 BP 144/92 01/04/25 07:40 Pulse Ox 96 01/04/25 07:40 O2 Del Method Room Air 01/04/25 07:40 Discharge Plan Discharge Patient Disposition: Home Condition: Stable Prescriptions: New amoxicillin-pot clavulanate [Augmentin] 500-125 mg tablet 1 tab PO TID Qty: 20 0RF potassium chloride 10 mEq capsule, extended release 10 meq PO DAILY Qty: 30 0RF Rx Instructions: take with your HCTZ to replace potassium lost dexamethasone 4 mg tablet 4 mg PO DAILY Qty: 7 0RF acetaminophen 325 mg Tablet 650 mg PO Q6H PRN (Reason: Mild/Mod Pain Or Temp >/= 101) Qty: 30 0RF ibuprofen 200 mg Tablet 400 mg PO Q6H PRN (Reason: Mild/Mod Pain Or Temp >/= 101) Qty: 20 0RF Continued allopurinol 300 mg tablet See Rx Instructions .ROUTE .COMPLEX Qty: 90 3RF Dose Instruction: TAKE 1 TABLET BY MOUTH EVERY DAY FOR GOUT Rx Instructions: TAKE 1/2 TABLET BY MOUTH EVERY DAY FOR GOUT Acidophilus Capsule 100 mg PO TID Qty: 30 0RF ciprofloxacin HCl 500 mg tablet 500 mg PO BID 10 Days Qty: 20 0RF metoprolol succinate 25 mg tablet extended release 24 hr See Rx Instructions .ROUTE .COMPLEX Qty: 180 3RF Dose Instruction: TAKE 1 TABLET BY MOUTH TWICE DAILY Rx Instructions: TAKE 1 TABLET BY MOUTH TWICE DAILY hydrochlorothiazide 25 mg tablet See Rx Instructions .ROUTE .COMPLEX Qty: 90 3RF Dose Instruction: TAKE 1 TABLET BY MOUTH DAILY Rx Instructions: TAKE 1 TABLET BY MOUTH DAILY losartan 50 mg tablet See Rx Instructions .ROUTE .COMPLEX Qty: 90 3RF Dose Instruction: TAKE 1 TABLET BY MOUTH DAILY Rx Instructions: TAKE 1 TABLET BY MOUTH DAILY Eliquis 5 mg tablet 5 mg PO BID Qty: 60 5RF Discontinued clindamycin HCl 300 mg capsule 300 mg PO QID Qty: 40 0RF Discharge Orders: Discharge Order (Routine); Ordered 01/04/25 Ordered By: Miguel Sanon Other Ambulatory Orders: DME: Les (Order) Location: None Selected Ordered By: Miguel Sanon [place]: [facility] [place] Ge Liu DPM [Physician, Podiatry] - 01/09/25 2:15 pm Jg Webster MD [Primary Care Provider, Family Practice] - 01/10/25 12:00 pm Discharge Diet: Cardiac Discharge Activity: Limit activity as instructed Patient Instructions: Acute Wound Care (DC), Opioid Safety, Post Anesthesia Care Activity Restrictions/Additional Instructions: Recommendations from Dr. Liu D.P.[place]/podiatry - Follow-up in podiatry clinic second floor [facility] medical office building on Wednesday January 08, 2025 9:00 AM. - Minimize activity, rest and elevate right lower extremity. - Wear cam boot to right lower extremity when weightbearing. - Contact Dr. Liu's office with any questions or concerns [phone] Discharge Attestations Time Spent in Discharge Care*: greater than 30 min Quality Metrics Clinical Quality Measures [ No reported AMI, CVA or VTE this stay] Coding Level of Care Code 84103 Diagnoses Cellulitis of foot, right L03.115 Puncture wound of right foot, initial encounter S91.331A Encounter type: initial encounter Cellulitis of right ankle L03.115 Time Spent (min) 35
--- NOTE | 2025-01-04 11:43 | PC.SOCIAL ---
IMM Updated Updated pt on IMM. No questions voiced. Provided pt a copy. Initialed, dated, & timed copy in chart.
[2025-01-04] MEDS: metoprolol succinate ER (24 HR) 25 mg Tablet PO (12:18)
[2025-01-04] MEDS: hydroCHLOROthiazide 25 mg Tablet PO (12:18)
[2025-01-04] MEDS: losartan 50 mg Tablet PO (12:18)
--- NOTE | 2025-01-04 13:26 | PC.NURSE ---
Tried to reach Dr. Sanon with the rechecked BP of 162/98 after meds x 1 hour. Trying to see if wanting to DC or new orders. No answer and voicemail full.
--- NOTE | 2025-01-04 14:00 | PC.NURSE ---
Notified Dr. Sanon of , [facility] DC.
== END 2025-01-04 14:25 | disposition home or self-care (01) | DRG 580 ==
LOC: ER 14:45 → ER IP 15:52 → MEDSURG 18:21
PROVIDERS: Podiatrist Foot & Ankle Surgery; Admitting Provider Internal Medicine; Emergency Provider Emergency Medicine; PCP Family Medicine; Visit Provider Internal Medicine
DX: S91.331A Puncture wound without foreign body, right foot, initial encounter (principal); L03.115 Cellulitis of right lower limb; I48.91 Unspecified atrial fibrillation; M10.9 Gout, unspecified; I10 Essential (primary) hypertension; F17.210 Nicotine dependence, cigarettes, uncomplicated; Z79.01 Long term (current) use of anticoagulants; Z79.899 Other long term (current) drug therapy; W22.8XXA Striking against or struck by other objects, initial encounter
CPT/HCPCS: 36415; 73720; 80048; 80202; 84145; 85025; 85651; 86140; 87040; 87070; 93005; 96365; 96367; 96372; 96375; 97760; 99285; A9577; J1100; J1644; J2543; J2704; J3370; J7030; J7050; J7799; J9999; L4361

== ENCOUNTER → 2025-01-08 08:50 | Outpatient (BNVA) | payer MEDICARE, OTHER, SELFPAY | PROVIDERS: PCP Family Medicine; Visit Provider Podiatrist Foot & Ankle Surgery | DX: S91.331A Puncture wound without foreign body, right foot, initial encounter (principal); Z98.890 Other specified postprocedural states; X58.XXXA Exposure to other specified factors, initial encounter | CPT/HCPCS: 99213 ==

== ENCOUNTER → 2025-01-14 09:38 | Outpatient (BNVA) | payer MEDICARE, OTHER, SELFPAY | PROVIDERS: PCP Family Medicine; Visit Provider Podiatrist Foot & Ankle Surgery | DX: Z98.890 Other specified postprocedural states (principal); S91.331D Puncture wound without foreign body, right foot, subsequent encounter; X58.XXXD Exposure to other specified factors, subsequent encounter | CPT/HCPCS: 99213 ==

== ENCOUNTER → 2025-05-10 11:56 | Outpatient (BNVA) | payer MEDICARE, OTHER, SELFPAY | PROVIDERS: PCP Family Medicine; Visit Provider Family Medicine | DX: I48.91 Unspecified atrial fibrillation (principal); R53.83 Other fatigue; R60.9 Edema, unspecified; E03.9 Hypothyroidism, unspecified | CPT/HCPCS: 80053; 82607; 84443; 85025 ==